=== PATIENT | male | born 1945 | race African-American/Black ===

== ENCOUNTER 2018-03-18 02:22 | Emergency (ER) | payer MEDICARE ==
[~2018-03-18] VITALS: Ht 175.3 cm; Wt 87.0 kg
[~2018-03-18 02:22] MED LIST: AMLODIPINE; DILTIAZEM
[2018-03-18] MEDS ORDERED: ASPIRIN 81MG TABLET PO ONE (03:00)
[2018-03-18 03:30] LABS: BASOPHILS % 0.7 % (0.0-2.0); EOSINOPHILS % 1.6 % (0.0-5.0); HEMATOCRIT. 37.4 % (42.0-52.0); HEMOGLOBIN. 12.6 g/dL (14.0-18.0); LYMPHOCYTES % 16.9 % (20.0-50.0); MEAN CORPUSCULAR VOLUME 86.2 fL (80.0-94.0); MEAN PLATELET VOLUME 7.5 fl (7.4-10.4); MONOCYTES % 12.4 % (2.0-8.0); NEUTROPHILS % 68.4 % (40.0-76.0); PLATELET 214 x1000/uL (130-400); RED BLOOD CELL COUNT 4.34 mill/uL (4.7-6.1); RED CELL DISTRIBUTION WIDTH 14.9 % (11.6-14.6)
[2018-03-18 03:33] LABS: CHLORIDE 105 mEq/L (98-107)
[2018-03-18 03:35] LABS: INR 1.1; PARTIAL THROMBOPLASTIN TIME 27.5 sec (23.4-31.0)
[2018-03-18 06:50] VITALS: BP 125/85
== END 2018-03-18 06:53 | disposition home or self-care (01) ==
LOC: ER 03:04 → CANBEDREQ 07:18
DX: T50.991A Poisoning by other drugs, medicaments and biological substances, accidental (unintentional), initial encounter (principal); R07.89 Other chest pain; I10 Essential (primary) hypertension; E78.00 Pure hypercholesterolemia, unspecified; I44.0 Atrioventricular block, first degree; Y92.098 Other place in other non-institutional residence as the place of occurrence of the external cause
CPT/HCPCS: 36415; 71045; 80053; 83880; 84484; 85025; 85610; 85730; 93005; 99285

== ENCOUNTER 2018-08-25 21:44 | Inpatient (IN) | payer MEDICARE, OTHER ==
[~2018-08-25] VITALS: Ht 175.3 cm; Wt 93.4 kg
[2018-08-26] MEDS ORDERED: BACITRACIN ZINC OINT UDPKT TOP ONE (00:15)
[2018-08-26] MEDS ORDERED: HYDROCODONE/ACETAMINOPHEN 5/325MG TABLET PO STA (00:15)
[2018-08-26 02:16] LABS: BASOPHILS % 0.6 % (0.0-2.0); EOSINOPHILS % 0.5 % (0.0-5.0); HEMATOCRIT. 37.9 % (42.0-52.0); HEMOGLOBIN. 13.1 g/dL (14.0-18.0); LYMPHOCYTES % 11.8 % (20.0-50.0); MEAN CORPUSCULAR VOLUME 86.7 fL (80.0-94.0); MEAN PLATELET VOLUME 7.2 fl (7.4-10.4); MONOCYTES % 11.1 % (2.0-8.0); PLATELET 212 x1000/uL (130-400); RED BLOOD CELL COUNT 4.37 mill/uL (4.7-6.1); RED CELL DISTRIBUTION WIDTH 14.5 % (11.6-14.6)
[2018-08-26 02:25] LABS: CHLORIDE 104 mEq/L (98-107)
[2018-08-26 02:42] LABS: CLARITY URINE CLEAR (CLEAR); COLOR URINE YELLOW (YELLOW); KETONES URINE NEGATIVE (NEGATIVE); LEUKOCYTE ESTERASE URINE NEGATIVE (NEGATIVE); NITRITE URINE NEGATIVE (NEGATIVE); OCCULT BLOOD URINE NEGATIVE (NEGATIVE); PH URINE 6.5 (4.5-8.0); PROTEIN URINE NEGATIVE (NEGATIVE); SPECIFIC GRAVITY URINE 1.005 (1.005-1.030); UROBILINOGEN URINE 0.2 E.U./dL (0.2-1.0)
[2018-08-26] MEDS ORDERED: HYDROCODONE/APAP 7.5/325MG 1 TAB TABLET PO ONE (04:30)
[2018-08-26] MEDS ORDERED: IBUPROFEN 600MG TABLET PO PRN (05:00)
[2018-08-26] MEDS ORDERED: MAGNESIUM/ALUMINUM HYDROXIDE/SIMETHICONE 30ML UDC PO PRN (07:30)
[2018-08-26] MEDS ORDERED: CLONIDINE 0.1MG TABLET PO PRN (07:30)
[2018-08-26] MEDS ORDERED: DIPHENHYDRAMINE 50MG/ML VIAL IV PRN (07:30)
[2018-08-26] MEDS ORDERED: NA PHOS,M-B/NA PHOS,DI-BA ENEMA 118ML PR PRN (07:30)
[2018-08-26] MEDS ORDERED: LORAZEPAM 2MG/ML CPJ IV PRN (07:30)
[2018-08-26] MEDS ORDERED: GUAIFENESIN 200MG/10ML SUGAR FREE UDC PO PRN (07:30)
[2018-08-26 08:00] VITALS: BP 148/79
[2018-08-26 10:00] VITALS: BP 124/84
[2018-08-26] MEDS ORDERED: DEXT 5%/0.45% NACL 1000ML 1,000 ML IV SCH (10:00)
[2018-08-26] MEDS: ENOXAPARIN 30MG/0.3ML SYR SUBCUT SCH ×2 (11:32→20:31)
[2018-08-26] MEDS: MORPHINE SULFATE 4 MG/ML CPJ (NOT FOR IM USE) IV PRN (11:33)
[2018-08-26 12:00] VITALS: BP 129/80
[2018-08-26] MEDS: HYDROCODONE/ACETAMINOPHEN 10/325MG TABLET PO PRN ×2 (15:31→20:43)
[2018-08-26] MEDS: SODIUM CHLORIDE 0.45% 1,000 ML IV SCH (15:32)
[2018-08-26] MEDS ORDERED: AMLODIPINE 5MG TABLET PO SCH (15:45)
[2018-08-26 16:00] VITALS: BP 131/78
[2018-08-26 20:00] VITALS: BP 152/89
[2018-08-27] VITALS: BP 144/78
[2018-08-27] MEDS: MORPHINE SULFATE 4 MG/ML CPJ (NOT FOR IM USE) IV PRN (02:51)
[2018-08-27 04:00] VITALS: BP 146/84
[2018-08-27] MEDS: SODIUM CHLORIDE 0.45% 1,000 ML IV SCH ×2 (05:06→23:33)
[2018-08-27] MEDS: IPRATROPIUM/ALBUTEROL 0.5-3(2.5)MG/3ML NEB INH PRN (05:15)
[2018-08-27 06:39] LABS: HEMATOCRIT. 41.7 % (42.0-52.0); HEMOGLOBIN. 13.7 g/dL (14.0-18.0); MEAN CORPUSCULAR HEMOGLOBIN 28.7 pg (28.0-32.0); MEAN CORPUSCULAR VOLUME 87.6 fL (80.0-94.0); MEAN PLATELET VOLUME 7.8 fl (7.4-10.4); PLATELET 215 x1000/uL (130-400); RED BLOOD CELL COUNT 4.76 mill/uL (4.7-6.1); RED CELL DISTRIBUTION WIDTH 14.6 % (11.6-14.6)
[2018-08-27 06:49] LABS: CHLORIDE 102 mEq/L (98-107)
[2018-08-27 08:00] VITALS: BP 135/85
[2018-08-27 08:24] LABS: PLATELET ESTIMATE NORMAL
[2018-08-27] MEDS ORDERED: INFLUENZA VIRUS VACCINE(AFLURIA) 0.5ML SYR IM ONE (09:00)
[2018-08-27] MEDS: ENOXAPARIN 30MG/0.3ML SYR SUBCUT SCH ×2 (09:37→20:56)
[2018-08-27] MEDS: AMLODIPINE 5MG TABLET PO SCH (09:38)
[2018-08-27] MEDS: HYDROCODONE/ACETAMINOPHEN 10/325MG TABLET PO PRN ×3 (09:41→20:55)
[2018-08-27 12:00] VITALS: BP 115/74
[2018-08-27 16:00] VITALS: BP 124/79
[2018-08-27 20:00] VITALS: BP 133/76
[2018-08-28] VITALS (64 sets, daily range): BP systolic 83–181; BP diastolic 57–125
[2018-08-28] MEDS: ACETAMINOPHEN 325MG TABLET PO PRN (00:36)
[2018-08-28] MEDS: IPRATROPIUM/ALBUTEROL 0.5-3(2.5)MG/3ML NEB INH PRN (01:41)
[2018-08-28] MEDS: MORPHINE SULFATE 4 MG/ML CPJ (NOT FOR IM USE) IV PRN (04:13)
[2018-08-28] MEDS: HYDROCODONE/ACETAMINOPHEN 10/325MG TABLET PO PRN (05:30)
[2018-08-28] MEDS ORDERED: PHENYLEPHRINE 40 MG in DEXT 5% WATER 246 ML IV PRN (08:30)
[2018-08-28] MEDS ORDERED: FENTANYL CITRATE/PF 50MCG/ML 2ML VIAL IV ONE (08:45)
[2018-08-28] MEDS: AMLODIPINE 5MG TABLET PO SCH (09:00)
[2018-08-28] MEDS: PROPOFOL 10MG/ML 100ML 100 ML IV PRN ×4 (09:26→22:58)
[2018-08-28 10:20] LABS: BG BASE EXCESS -0.4 mmol/L (-2.0-2.0); BG CARBOXYHEMOGLOBIN 0.9 % (0.5-1.5); BG DEOXYHEMOGLOBIN 0.3 % (0.0-5.0); BG HCO3 ACT 22.5 mmol/L (22.0-26.0); BG METHEMOGLOBIN 0.2 % (0.0-1.5); BG OXYGEN SATURATION 99.7 % (92.0-98.5); BG OXYHEMOGLOBIN 98.6 % (94.0-97.0); BG PCO2 32.2 mmHg (35.0-45.0); BG PH 7.463 (7.350-7.450); BG SAMPLE SITE RIGHT RADIAL; BG TIDAL VOLUME(mL) 550 mL; BG TOTAL HEMOGLOBIN 13.6 g/dL (12.0-18.0); BG VENT MODE VENT - A/C; BG VENT RATE 14 set
[2018-08-28] MEDS ORDERED: IOHEXOL-350 100 ML BOTTLE ONE (11:06)
[2018-08-28] MEDS: SODIUM CHLORIDE 0.45% 1,000 ML IV SCH (11:33)
[2018-08-28 13:13] LABS: HEMATOCRIT. 37.1 % (42.0-52.0); HEMOGLOBIN. 12.6 g/dL (14.0-18.0); MEAN CORPUSCULAR HEMOGLOBIN 29.6 pg (28.0-32.0); MEAN CORPUSCULAR VOLUME 87.2 fL (80.0-94.0); PLATELET 213 x1000/uL (130-400); RED BLOOD CELL COUNT 4.26 mill/uL (4.7-6.1); RED CELL DISTRIBUTION WIDTH 14.1 % (11.6-14.6)
[2018-08-28] MEDS ORDERED: SODIUM CHLORIDE 0.9% 10ML VIAL ONE (13:27)
[2018-08-28] MEDS ORDERED: ETOMIDATE 2MG/ML 10ML VIAL IV ONE (13:27)
[2018-08-28] MEDS ORDERED: VECURONIUM BROMIDE 10 MG/VIAL IV ONE (13:27)
[2018-08-28] MEDS ORDERED: ENOXAPARIN 40MG/0.4ML SYR SUBCUT SCH (13:30)
[2018-08-28 13:48] LABS: CHLORIDE 103 mEq/L (98-107)
[2018-08-28 13:54] LABS: CREATINE KINASE 105 IU/L (39-308); CREATINE KINASE MB FRACTION < 1.0 ng/mL (0.5-3.6); HDL CHOLESTEROL 47 mg/dL (40-59); LDL CHOLESTEROL 100 mg/dL (5-100); T4 FREE 1.22 ng/dL (0.76-1.46)
[2018-08-28 14:28] LABS: PLATELET ESTIMATE NORMAL
[2018-08-28] MEDS: PANTOPRAZOLE SODIUM 40 MG/VIAL IV SCH (15:56)
[2018-08-29] VITALS (90 sets, daily range): BP systolic 107–162; BP diastolic 62–106
[2018-08-29 02:01] LABS: CREATINE KINASE 83 IU/L (39-308); CREATINE KINASE MB FRACTION < 1.0 ng/mL (0.5-3.6)
[2018-08-29] MEDS: PROPOFOL 10MG/ML 100ML 100 ML IV PRN ×4 (03:50→22:20)
[2018-08-29] MEDS: SODIUM CHLORIDE 0.45% 1,000 ML IV SCH ×2 (03:51→20:31)
[2018-08-29 05:56] LABS: BASOPHILS % 0.2 % (0.0-2.0); EOSINOPHILS % 1.5 % (0.0-5.0); HEMATOCRIT. 37.5 % (42.0-52.0); HEMOGLOBIN. 12.6 g/dL (14.0-18.0); LYMPHOCYTES % 8.2 % (20.0-50.0); MEAN CORPUSCULAR HEMOGLOBIN 29.5 pg (28.0-32.0); MEAN CORPUSCULAR VOLUME 87.8 fL (80.0-94.0); MEAN PLATELET VOLUME 8.1 fl (7.4-10.4); MONOCYTES % 11.2 % (2.0-8.0); NEUTROPHILS % 78.9 % (40.0-76.0); PLATELET 217 x1000/uL (130-400); RED BLOOD CELL COUNT 4.26 mill/uL (4.7-6.1); RED CELL DISTRIBUTION WIDTH 14.4 % (11.6-14.6)
[2018-08-29 05:58] LABS: CHLORIDE 105 mEq/L (98-107)
[2018-08-29 06:07] LABS: CREATINE KINASE 71 IU/L (39-308); CREATINE KINASE MB FRACTION < 1.0 ng/mL (0.5-3.6)
[2018-08-29 08:28] LABS: BG BASE EXCESS 0.2 mmol/L (-2.0-2.0); BG CARBOXYHEMOGLOBIN 1.4 % (0.5-1.5); BG DEOXYHEMOGLOBIN 2.2 % (0.0-5.0); BG FRACTION INSPIRED OXYGEN 40; BG HCO3 ACT 24.4 mmol/L (22.0-26.0); BG METHEMOGLOBIN 0.3 % (0.0-1.5); BG OXYGEN SATURATION 97.8 % (92.0-98.5); BG OXYHEMOGLOBIN 96.1 % (94.0-97.0); BG PCO2 37.9 mmHg (35.0-45.0); BG PH 7.426 (7.350-7.450); BG PO2 98.8 mmHg (75.0-100.0); BG SAMPLE SITE RIGHT RADIAL; BG TIDAL VOLUME(mL) 500 mL; BG TOTAL HEMOGLOBIN 13.2 g/dL (12.0-18.0); BG VENT MODE VENT - A/C; BG VENT RATE 12 set
[2018-08-29] MEDS: AMLODIPINE 5MG TABLET PO SCH (09:00)
[2018-08-29] MEDS: PANTOPRAZOLE SODIUM 40 MG/VIAL IV SCH (09:53)
[2018-08-29] MEDS: ENOXAPARIN 80MG/0.8ML SYR SUBCUT SCH ×2 (09:54→21:58)
[2018-08-29] MEDS ORDERED: FINA1TAB18 PO (12:51)
[2018-08-29] MEDS ORDERED: AMLO5TAB88 PO (12:52)
[2018-08-29] MEDS ORDERED: HYDR-4001 MT (12:53)
[2018-08-29] MEDS ORDERED: TAMS-11 PO (12:54)
[2018-08-29] MEDS ORDERED: ATOR20TA PO (12:54)
[2018-08-29] MEDS ORDERED: ASPI-1158 PO (12:55)
[2018-08-29] MEDS ORDERED: S350 PO (12:56)
[2018-08-29] MEDS ORDERED: LISI-604 PO (12:56)
[2018-08-29] MEDS: MORPHINE SULFATE 4 MG/ML CPJ (NOT FOR IM USE) IV PRN (17:41)
[2018-08-29] MEDS: IPRATROPIUM/ALBUTEROL 0.5-3(2.5)MG/3ML NEB HHN SCH ×2 (18:05→19:40)
[2018-08-29] MEDS: ACETAMINOPHEN 325MG TABLET PO PRN (18:52)
[2018-08-30] VITALS (90 sets, daily range): BP systolic 100–146; BP diastolic 60–84
[2018-08-30] MEDS: IPRATROPIUM/ALBUTEROL 0.5-3(2.5)MG/3ML NEB HHN SCH ×4 (01:25→19:30)
[2018-08-30] MEDS: ACETAMINOPHEN 325MG TABLET PO PRN (01:54)
[2018-08-30] MEDS: PROPOFOL 10MG/ML 100ML 100 ML IV PRN ×5 (03:35→21:54)
[2018-08-30 08:31] LABS: BG BASE EXCESS 3.4 mmol/L (-2.0-2.0); BG CARBOXYHEMOGLOBIN 0.8 % (0.5-1.5); BG DEOXYHEMOGLOBIN 2.7 % (0.0-5.0); BG FRACTION INSPIRED OXYGEN 40; BG METHEMOGLOBIN 0.3 % (0.0-1.5); BG OXYGEN SATURATION 97.3 % (92.0-98.5); BG OXYHEMOGLOBIN 96.2 % (94.0-97.0); BG PCO2 42.5 mmHg (35.0-45.0); BG PH 7.437 (7.350-7.450); BG PO2 94.9 mmHg (75.0-100.0); BG SAMPLE SITE LEFT RADIAL; BG TIDAL VOLUME(mL) 500 mL; BG TOTAL HEMOGLOBIN 13.3 g/dL (12.0-18.0); BG VENT MODE VENT - A/C; BG VENT RATE 12 set
[2018-08-30] MEDS: PANTOPRAZOLE SODIUM 40 MG/VIAL IV SCH (09:11)
[2018-08-30] MEDS: ENOXAPARIN 80MG/0.8ML SYR SUBCUT SCH ×2 (09:11→21:53)
[2018-08-30] MEDS: AMLODIPINE 5MG TABLET PO SCH (09:19)
[2018-08-30] MEDS: SODIUM CHLORIDE 0.45% 1,000 ML IV SCH (13:22)
[2018-08-31] VITALS (84 sets, daily range): BP systolic 78–158; BP diastolic 54–91
[2018-08-31] MEDS: IPRATROPIUM/ALBUTEROL 0.5-3(2.5)MG/3ML NEB HHN SCH ×4 (02:20→20:28)
[2018-08-31] MEDS: PROPOFOL 10MG/ML 100ML 100 ML IV PRN ×5 (03:56→21:56)
[2018-08-31] MEDS: SODIUM CHLORIDE 0.45% 1,000 ML IV SCH (03:56)
[2018-08-31 06:25] LABS: HEMATOCRIT. 36.2 % (42.0-52.0); MEAN CORPUSCULAR HEMOGLOBIN 28.9 pg (28.0-32.0); MEAN CORPUSCULAR VOLUME 87.5 fL (80.0-94.0); MEAN PLATELET VOLUME 8.4 fl (7.4-10.4); PLATELET 247 x1000/uL (130-400); RED BLOOD CELL COUNT 4.14 mill/uL (4.7-6.1)
[2018-08-31 06:34] LABS: CHLORIDE 107 mEq/L (98-107)
[2018-08-31 08:10] LABS: NUCLEATED RED BLOOD CELLS 1 /100 WBC; PLATELET ESTIMATE NORMAL
[2018-08-31] MEDS: PANTOPRAZOLE SODIUM 40 MG/VIAL IV SCH (09:00)
[2018-08-31] MEDS: AMLODIPINE 5MG TABLET PO SCH (09:00)
[2018-08-31] MEDS: ENOXAPARIN 80MG/0.8ML SYR SUBCUT SCH (13:00)
[2018-08-31 14:17] LABS: BG BASE EXCESS 1.5 mmol/L (-2.0-2.0); BG CARBOXYHEMOGLOBIN 0.7 % (0.5-1.5); BG DEOXYHEMOGLOBIN 3.3 % (0.0-5.0); BG FRACTION INSPIRED OXYGEN 40; BG HCO3 ACT 25.5 mmol/L (22.0-26.0); BG METHEMOGLOBIN 0.2 % (0.0-1.5); BG OXYGEN SATURATION 96.7 % (92.0-98.5); BG OXYHEMOGLOBIN 95.8 % (94.0-97.0); BG PCO2 38.2 mmHg (35.0-45.0); BG PH 7.442 (7.350-7.450); BG PO2 89.1 mmHg (75.0-100.0); BG SAMPLE SITE LEFT RADIAL; BG TIDAL VOLUME(mL) 500 mL; BG TOTAL HEMOGLOBIN 13.3 g/dL (12.0-18.0); BG VENT MODE VENT - A/C; BG VENT RATE 12 set
[2018-08-31] MEDS: ACETAMINOPHEN 325MG TABLET PO PRN (21:55)
[2018-08-31] MEDS: ENOXAPARIN 100MG/ML SYR SUBCUT SCH (22:31)
[2018-09-01] VITALS (74 sets, daily range): BP systolic 91–137; BP diastolic 58–79
[2018-09-01] MEDS: IPRATROPIUM/ALBUTEROL 0.5-3(2.5)MG/3ML NEB HHN SCH ×4 (00:51→12:09)
[2018-09-01] MEDS: PROPOFOL 10MG/ML 100ML 100 ML IV PRN ×5 (02:23→21:19)
[2018-09-01] MEDS: ACETAMINOPHEN 325MG TABLET PO PRN (06:15)
[2018-09-01] MEDS: AMLODIPINE 5MG TABLET PO SCH (09:00)
[2018-09-01] MEDS: PANTOPRAZOLE SODIUM 40 MG/VIAL IV SCH (09:12)
[2018-09-01] MEDS: ENOXAPARIN 100MG/ML SYR SUBCUT SCH ×2 (09:12→21:19)
[2018-09-01 10:01] LABS: HEMATOCRIT. 35.8 % (42.0-52.0); HEMOGLOBIN. 11.8 g/dL (14.0-18.0); MEAN CORPUSCULAR HEMOGLOBIN 28.8 pg (28.0-32.0); MEAN CORPUSCULAR VOLUME 87.4 fL (80.0-94.0); MEAN PLATELET VOLUME 8.6 fl (7.4-10.4); PLATELET 259 x1000/uL (130-400); RED BLOOD CELL COUNT 4.09 mill/uL (4.7-6.1); RED CELL DISTRIBUTION WIDTH 14.1 % (11.6-14.6)
[2018-09-01 10:08] LABS: CHLORIDE 107 mEq/L (98-107)
[2018-09-01] MEDS: SODIUM CHLORIDE 0.45% 1,000 ML IV SCH (10:36)
[2018-09-01] MEDS: METRONIDAZOLE 500 MG PREMIX 100 ML IV SCH ×2 (10:51→17:40)
[2018-09-01 10:57] LABS: PLATELET ESTIMATE NORMAL
[2018-09-01] MEDS ORDERED: ALBUTEROL (0.083%) 2.5MG/3ML NEB HHN PRN (12:30)
[2018-09-01] MEDS: LEVOFLOXACIN 500MG PREMIX 100 ML IV SCH (12:44)
[2018-09-01] MEDS: ACETYLCYSTEINE 100MG/ML 10% VIAL 4ML INH SCH (13:10)
[2018-09-01] MEDS: ALBUTEROL (0.083%) 2.5MG/3ML NEB HHN SCH ×2 (13:11→19:54)
[2018-09-02] VITALS (50 sets, daily range): BP systolic 98–137; BP diastolic 60–82
[2018-09-02] MEDS: METRONIDAZOLE 500 MG PREMIX 100 ML IV SCH ×3 (01:48→17:49)
[2018-09-02] MEDS: ACETYLCYSTEINE 100MG/ML 10% VIAL 4ML INH SCH ×3 (01:57→13:23)
[2018-09-02] MEDS: ALBUTEROL (0.083%) 2.5MG/3ML NEB HHN SCH ×4 (01:57→20:06)
[2018-09-02] MEDS: PROPOFOL 10MG/ML 100ML 100 ML IV PRN ×5 (02:31→21:30)
[2018-09-02] MEDS: SODIUM CHLORIDE 0.45% 1,000 ML IV SCH ×2 (02:32→17:49)
[2018-09-02 05:15] LABS: HEMATOCRIT. 34.9 % (42.0-52.0); HEMOGLOBIN. 11.6 g/dL (14.0-18.0); MEAN CORPUSCULAR HEMOGLOBIN 29.1 pg (28.0-32.0); MEAN PLATELET VOLUME 8.2 fl (7.4-10.4); PLATELET 266 x1000/uL (130-400); RED BLOOD CELL COUNT 3.97 mill/uL (4.7-6.1); RED CELL DISTRIBUTION WIDTH 14.2 % (11.6-14.6)
[2018-09-02 05:23] LABS: CHLORIDE 108 mEq/L (98-107)
[2018-09-02] MEDS: PANTOPRAZOLE SODIUM 40 MG/VIAL IV SCH (08:52)
[2018-09-02] MEDS: AMLODIPINE 5MG TABLET PO SCH (08:53)
[2018-09-02] MEDS: ENOXAPARIN 100MG/ML SYR SUBCUT SCH ×2 (08:53→21:30)
[2018-09-02 09:54] LABS: PLATELET ESTIMATE NORMAL
[2018-09-02] MEDS: LEVOFLOXACIN 500MG PREMIX 100 ML IV SCH (11:50)
[2018-09-03] VITALS (47 sets, daily range): BP systolic 103–146; BP diastolic 62–100
[2018-09-03] MEDS: ACETYLCYSTEINE 100MG/ML 10% VIAL 4ML INH SCH ×2 (00:11→08:05)
[2018-09-03] MEDS: METRONIDAZOLE 500 MG PREMIX 100 ML IV SCH ×3 (01:03→17:33)
[2018-09-03] MEDS: ACETAMINOPHEN 325MG TABLET PO PRN ×3 (01:04→23:42)
[2018-09-03] MEDS: PROPOFOL 10MG/ML 100ML 100 ML IV PRN ×2 (01:51→06:31)
[2018-09-03] MEDS: ALBUTEROL (0.083%) 2.5MG/3ML NEB HHN SCH ×4 (02:05→19:56)
[2018-09-03 05:10] LABS: HEMOGLOBIN. 11.4 g/dL (14.0-18.0); MEAN CORPUSCULAR HEMOGLOBIN 29.1 pg (28.0-32.0); MEAN CORPUSCULAR VOLUME 87.1 fL (80.0-94.0); MEAN PLATELET VOLUME 8.2 fl (7.4-10.4); PLATELET 302 x1000/uL (130-400); RED CELL DISTRIBUTION WIDTH 14.3 % (11.6-14.6)
[2018-09-03 07:15] LABS: ATYPICAL LYMPHOCYTES 1
[2018-09-03 07:16] LABS: PLATELET ESTIMATE NORMAL
[2018-09-03 08:46] LABS: BG BASE EXCESS 2.2 mmol/L (-2.0-2.0); BG CARBOXYHEMOGLOBIN 0.1 % (0.5-1.5); BG DEOXYHEMOGLOBIN 1.5 % (0.0-5.0); BG FRACTION INSPIRED OXYGEN 40; BG HCO3 ACT 26.4 mmol/L (22.0-26.0); BG OXYGEN SATURATION 98.5 % (92.0-98.5); BG OXYHEMOGLOBIN 98.4 % (94.0-97.0); BG PCO2 39.9 mmHg (35.0-45.0); BG PH 7.439 (7.350-7.450); BG PO2 132.9 mmHg (75.0-100.0); BG SAMPLE SITE RIGHT RADIAL; BG TIDAL VOLUME(mL) 500 mL; BG TOTAL HEMOGLOBIN 11.9 g/dL (12.0-18.0); BG VENT MODE VENT - A/C; BG VENT RATE 12 set
[2018-09-03] MEDS: PANTOPRAZOLE SODIUM 40 MG/VIAL IV SCH (09:15)
[2018-09-03] MEDS: AMLODIPINE 5MG TABLET PO SCH (09:15)
[2018-09-03] MEDS: ENOXAPARIN 100MG/ML SYR SUBCUT SCH ×2 (09:16→20:33)
[2018-09-03] MEDS ORDERED: LORAZEPAM 2MG/ML CPJ IV SCH (09:30)
[2018-09-03] MEDS: QUETIAPINE FUMARATE 25MG TABLET PO SCH ×2 (10:02→20:33)
[2018-09-03] MEDS: LEVOFLOXACIN 500MG PREMIX 100 ML IV SCH (10:44)
[2018-09-03 10:59] LABS: BG BASE EXCESS 1.8 mmol/L (-2.0-2.0); BG CARBOXYHEMOGLOBIN 0.8 % (0.5-1.5); BG DEOXYHEMOGLOBIN 6.9 % (0.0-5.0); BG FRACTION INSPIRED OXYGEN 40; BG HCO3 ACT 26.4 mmol/L (22.0-26.0); BG OXYHEMOGLOBIN 92.3 % (94.0-97.0); BG PCO2 41.7 mmHg (35.0-45.0); BG PO2 64.7 mmHg (75.0-100.0); BG PRESSURE SUPPORT 8; BG SAMPLE SITE RIGHT RADIAL; BG TOTAL HEMOGLOBIN 12.1 g/dL (12.0-18.0); BG VENT MODE VENT - CPAP
[2018-09-03] MEDS ORDERED: FUROSEMIDE 40MG/4ML VIAL IVP NR (11:45)
[2018-09-03 12:05] LABS: CHLORIDE 109 mEq/L (98-107)
[2018-09-03] MEDS: FENTANYL CITRATE/PF 500 MCG in SODIUM CHLORIDE 0.9% 40 ML IV PRN ×2 (12:51→20:38)
[2018-09-04] VITALS (49 sets, daily range): BP systolic 82–168; BP diastolic 46–118
[2018-09-04] MEDS: ACETYLCYSTEINE 100MG/ML 10% VIAL 4ML INH SCH ×2 (00:45→12:58)
[2018-09-04] MEDS: ALBUTEROL (0.083%) 2.5MG/3ML NEB HHN SCH ×2 (01:51→08:11)
[2018-09-04] MEDS: METRONIDAZOLE 500 MG PREMIX 100 ML IV SCH ×3 (01:57→17:02)
[2018-09-04] MEDS: FENTANYL CITRATE/PF 500 MCG in SODIUM CHLORIDE 0.9% 40 ML IV PRN (04:48)
[2018-09-04] MEDS: ACETAMINOPHEN 325MG TABLET PO PRN ×2 (05:48→16:52)
[2018-09-04] MEDS: AMLODIPINE 5MG TABLET PO SCH (09:00)
[2018-09-04] MEDS: PANTOPRAZOLE SODIUM 40 MG/VIAL IV SCH (09:02)
[2018-09-04] MEDS: QUETIAPINE FUMARATE 25MG TABLET PO SCH ×2 (09:02→20:39)
[2018-09-04] MEDS: ENOXAPARIN 100MG/ML SYR SUBCUT SCH ×2 (09:02→20:39)
[2018-09-04 11:57] LABS: BG BASE EXCESS 5.1 mmol/L (-2.0-2.0); BG CARBOXYHEMOGLOBIN 0.5 % (0.5-1.5); BG FRACTION INSPIRED OXYGEN 40; BG HCO3 ACT 29.7 mmol/L (22.0-26.0); BG METHEMOGLOBIN 0.1 % (0.0-1.5); BG OXYHEMOGLOBIN 96.4 % (94.0-97.0); BG PCO2 43.9 mmHg (35.0-45.0); BG PH 7.448 (7.350-7.450); BG PO2 92.3 mmHg (75.0-100.0); BG PRESSURE SUPPORT 8; BG SAMPLE SITE RIGHT RADIAL; BG TOTAL HEMOGLOBIN 12.3 g/dL (12.0-18.0); BG VENT MODE VENT - CPAP
[2018-09-04] MEDS: IPRATROPIUM/ALBUTEROL 0.5-3(2.5)MG/3ML NEB HHN SCH ×3 (12:58→20:00)
[2018-09-04] MEDS: CEFEPIME 2,000 MG in DEXT 5% WATER 100 ML IV SCH (14:57)
[2018-09-04] MEDS: LORAZEPAM 2MG/ML CPJ IV PRN ×3 (17:55→23:43)
[2018-09-05] VITALS (48 sets, daily range): BP systolic 80–147; BP diastolic 40–112
[2018-09-05] MEDS: IPRATROPIUM/ALBUTEROL 0.5-3(2.5)MG/3ML NEB HHN SCH ×3 (00:45→08:57)
[2018-09-05] MEDS: CEFEPIME 2,000 MG in DEXT 5% WATER 100 ML IV SCH ×2 (01:50→14:51)
[2018-09-05] MEDS: METRONIDAZOLE 500 MG PREMIX 100 ML IV SCH ×3 (02:45→17:38)
[2018-09-05] MEDS: ACETYLCYSTEINE 100MG/ML 10% VIAL 4ML INH SCH ×2 (08:59→16:28)
[2018-09-05] MEDS: AMLODIPINE 5MG TABLET PO SCH (09:41)
[2018-09-05] MEDS: DOCUSATE SODIUM 100MG CAPSULE PO PRN (09:41)
[2018-09-05] MEDS: PANTOPRAZOLE SODIUM 40 MG/VIAL IV SCH (09:42)
[2018-09-05] MEDS: QUETIAPINE FUMARATE 25MG TABLET PO SCH ×2 (09:42→21:14)
[2018-09-05] MEDS: ENOXAPARIN 100MG/ML SYR SUBCUT SCH ×2 (09:45→21:15)
[2018-09-05] MEDS ORDERED: SODIUM CHLORIDE 0.9% 500 ML IV SCH (11:00)
[2018-09-05] MEDS: SODIUM CHLORIDE 0.9% 1,000 ML IV SCH (14:52)
[2018-09-05 15:23] LABS: HEMATOCRIT. 32.6 % (42.0-52.0); HEMOGLOBIN. 10.8 g/dL (14.0-18.0); MEAN CORPUSCULAR HEMOGLOBIN 28.8 pg (28.0-32.0); MEAN CORPUSCULAR VOLUME 87.1 fL (80.0-94.0); MEAN PLATELET VOLUME 7.8 fl (7.4-10.4); PLATELET 436 x1000/uL (130-400); RED BLOOD CELL COUNT 3.75 mill/uL (4.7-6.1); RED CELL DISTRIBUTION WIDTH 14.2 % (11.6-14.6)
[2018-09-05 15:28] LABS: CHLORIDE 114 mEq/L (98-107)
[2018-09-05 15:56] LABS: PLATELET ESTIMATE INCREASED
[2018-09-05] MEDS: IPRATROPIUM BROMIDE (0.02%) 0.5MG/2.5ML NEB HHN SCH ×2 (16:28→20:56)
[2018-09-06] VITALS (39 sets, daily range): BP systolic 71–148; BP diastolic 45–93
[2018-09-06] MEDS: SODIUM CHLORIDE 0.9% 1,000 ML IV SCH (00:45)
[2018-09-06] MEDS: ACETYLCYSTEINE 100MG/ML 10% VIAL 4ML INH SCH (02:25)
[2018-09-06] MEDS: IPRATROPIUM BROMIDE (0.02%) 0.5MG/2.5ML NEB HHN SCH ×4 (02:30→20:05)
[2018-09-06] MEDS ORDERED: SODIUM CHLORIDE 0.9% 250 ML IV ONE (02:45)
[2018-09-06] MEDS: CEFEPIME 2,000 MG in DEXT 5% WATER 100 ML IV SCH ×2 (02:51→14:00)
[2018-09-06] MEDS: ACETAMINOPHEN 325MG TABLET PO PRN (02:51)
[2018-09-06] MEDS: METRONIDAZOLE 500 MG PREMIX 100 ML IV SCH ×3 (02:51→17:44)
[2018-09-06] MEDS: PANTOPRAZOLE SODIUM 40 MG/VIAL IV SCH (08:27)
[2018-09-06] MEDS: LORAZEPAM 2MG/ML CPJ IV PRN (08:28)
[2018-09-06] MEDS: QUETIAPINE FUMARATE 25MG TABLET PO SCH ×2 (08:28→22:12)
[2018-09-06] MEDS: ENOXAPARIN 100MG/ML SYR SUBCUT SCH ×2 (08:28→22:13)
[2018-09-06] MEDS: AMLODIPINE 5MG TABLET PO SCH (08:29)
[2018-09-06] MEDS: DEXT 5%/0.45% NACL 1000ML 1,000 ML IV SCH (12:35)
[2018-09-06 12:48] LABS: CHLORIDE 124 mEq/L (98-107)
[2018-09-06 13:10] LABS: HEMATOCRIT. 27.5 % (42.0-52.0); HEMOGLOBIN. 9.1 g/dL (14.0-18.0); MEAN CORPUSCULAR HEMOGLOBIN 28.9 pg (28.0-32.0); MEAN CORPUSCULAR VOLUME 87.4 fL (80.0-94.0); MEAN PLATELET VOLUME 8.2 fl (7.4-10.4); PLATELET 495 x1000/uL (130-400); RED BLOOD CELL COUNT 3.14 mill/uL (4.7-6.1); RED CELL DISTRIBUTION WIDTH 14.4 % (11.6-14.6)
[2018-09-06 13:46] LABS: PLATELET ESTIMATE INCREASED
[2018-09-06] MEDS ORDERED: SODIUM CHLORIDE 0.9% 500 ML IV NR (20:30)
[2018-09-06] MEDS ORDERED: SODIUM CHLORIDE 0.9% 1,000 ML IV NR (23:15)
[2018-09-07] VITALS (12 sets, daily range): BP systolic 99–161; BP diastolic 53–82
[2018-09-07] MEDS: IPRATROPIUM BROMIDE (0.02%) 0.5MG/2.5ML NEB HHN SCH ×5 (02:15→22:45)
[2018-09-07] MEDS: DEXT 5%/0.45% NACL 1000ML 1,000 ML IV SCH ×2 (03:28→12:13)
[2018-09-07] MEDS: CEFEPIME 2,000 MG in DEXT 5% WATER 100 ML IV SCH ×2 (03:28→14:44)
[2018-09-07] MEDS: METRONIDAZOLE 500 MG PREMIX 100 ML IV SCH ×3 (03:30→18:13)
[2018-09-07] MEDS: AMLODIPINE 5MG TABLET PO SCH (09:00)
[2018-09-07] MEDS: PANTOPRAZOLE SODIUM 40 MG/VIAL IV SCH (09:27)
[2018-09-07] MEDS: ENOXAPARIN 100MG/ML SYR SUBCUT SCH ×2 (09:33→21:47)
[2018-09-07] MEDS ORDERED: ENOXAPARIN 100MG/ML SYR SUBCUT SCH (13:11)
[2018-09-07] MEDS: METOPROLOL TARTRATE 50MG TABLET PO SCH (18:41)
[2018-09-07] MEDS ORDERED: ADENOSINE 3 MG/ML 2ML VIAL IV NR (19:15)
[2018-09-07] MEDS ORDERED: DIGOXIN 500MCG/2ML AMP IV NR (20:45)
[2018-09-07] MEDS: GUAIFENESIN 600MG ER TABLET PO SCH (20:59)
[2018-09-07] MEDS: QUETIAPINE FUMARATE 25MG TABLET PO SCH (21:00)
[2018-09-07] MEDS ORDERED: SODIUM CHLORIDE 0.9% 500 ML IV NR (22:15)
[2018-09-08] VITALS (21 sets, daily range): BP systolic 92–135; BP diastolic 36–81
[2018-09-08] MEDS: IPRATROPIUM BROMIDE (0.02%) 0.5MG/2.5ML NEB HHN SCH ×4 (00:15→20:47)
[2018-09-08] MEDS: CEFEPIME 2,000 MG in DEXT 5% WATER 100 ML IV SCH ×2 (01:16→14:04)
[2018-09-08] MEDS: METRONIDAZOLE 500 MG PREMIX 100 ML IV SCH ×2 (01:16→10:04)
[2018-09-08] MEDS: DEXT 5%/0.45% NACL 1000ML 1,000 ML IV SCH (01:17)
[2018-09-08] MEDS: METOPROLOL TARTRATE 50MG TABLET PO SCH ×3 (06:11→21:10)
[2018-09-08 07:03] LABS: BASOPHILS % 0.2 % (0.0-2.0); EOSINOPHILS % 0.3 % (0.0-5.0); LYMPHOCYTES % 8.1 % (20.0-50.0); MEAN CORPUSCULAR HEMOGLOBIN 28.9 pg (28.0-32.0); MEAN CORPUSCULAR VOLUME 87.9 fL (80.0-94.0); MEAN PLATELET VOLUME 7.9 fl (7.4-10.4); MONOCYTES % 8.4 % (2.0-8.0); PLATELET 523 x1000/uL (130-400); RED BLOOD CELL COUNT 2.18 mill/uL (4.7-6.1)
[2018-09-08 07:56] LABS: HEMATOCRIT. 19.1 % (42.0-52.0); HEMOGLOBIN. 6.3 g/dL (14.0-18.0)
[2018-09-08] MEDS: GUAIFENESIN 600MG ER TABLET PO SCH ×2 (08:39→20:36)
[2018-09-08] MEDS: ENOXAPARIN 100MG/ML SYR SUBCUT SCH (09:00)
[2018-09-08 09:46] LABS: HEMATOCRIT 19.1 % (42.0-52.0); HEMOGLOBIN 6.2 g/dL (14.0-18.0)
[2018-09-08] MEDS: PANTOPRAZOLE SODIUM 40 MG/VIAL IV SCH (10:04)
[2018-09-08] MEDS ORDERED: DIGOXIN 500MCG/2ML AMP IV SCH (15:30)
[2018-09-08] MEDS ORDERED: SODIUM CHLORIDE 0.9% 500 ML IV ONE (15:30)
[2018-09-08] MEDS: ACETAMINOPHEN 325MG TABLET PO PRN ×2 (16:15→20:34)
[2018-09-08] MEDS: FINASTERIDE 5MG TABLET PO SCH (17:48)
[2018-09-08] MEDS: DEXTROSE 5% WATER 1,000 ML IV SCH (17:49)
[2018-09-08] MEDS: QUETIAPINE FUMARATE 25MG TABLET PO SCH (20:34)
[2018-09-08] MEDS ORDERED: DIGOXIN 500MCG/2ML AMP IV NR (22:00)
[2018-09-09] VITALS (14 sets, daily range): BP systolic 98–152; BP diastolic 58–98
[2018-09-09] MEDS: CEFEPIME 2,000 MG in DEXT 5% WATER 100 ML IV SCH ×2 (02:50→13:39)
[2018-09-09] MEDS: IPRATROPIUM BROMIDE (0.02%) 0.5MG/2.5ML NEB HHN SCH ×4 (02:51→20:16)
[2018-09-09] MEDS: METOPROLOL TARTRATE 50MG TABLET PO SCH ×2 (06:41→18:16)
[2018-09-09] MEDS: DEXTROSE 5% WATER 1,000 ML IV SCH ×2 (06:41→18:16)
[2018-09-09] MEDS: GUAIFENESIN 600MG ER TABLET PO SCH ×2 (09:13→21:01)
[2018-09-09] MEDS: PANTOPRAZOLE SODIUM 40 MG/VIAL IV SCH (09:13)
[2018-09-09] MEDS: DOCUSATE SODIUM 100MG CAPSULE PO PRN (09:13)
[2018-09-09] MEDS: FINASTERIDE 5MG TABLET PO SCH (09:13)
[2018-09-09] MEDS: ACETAMINOPHEN 325MG TABLET PO PRN ×2 (09:14→15:47)
[2018-09-09 09:24] LABS: HEMATOCRIT 26.6 % (42.0-52.0); HEMOGLOBIN 8.8 g/dL (14.0-18.0); MEAN CORPUSCULAR HEMOGLOBIN 28.9 pg (28.0-32.0); MEAN CORPUSCULAR VOLUME 86.8 fL (80.0-94.0); PLATELET 423 x1000/uL (130-400); RED BLOOD CELL COUNT 3.06 mill/uL (4.7-6.1); RED CELL DISTRIBUTION WIDTH 14.9 % (11.6-14.6)
[2018-09-09] MEDS: ONDANSETRON HCL 4MG/2ML INJ IV PRN (15:47)
[2018-09-09] MEDS: QUETIAPINE FUMARATE 25MG TABLET PO SCH (21:01)
[2018-09-10] VITALS (11 sets, daily range): BP systolic 92–127; BP diastolic 57–74
[2018-09-10] MEDS: IPRATROPIUM BROMIDE (0.02%) 0.5MG/2.5ML NEB HHN SCH ×5 (00:27→20:22)
[2018-09-10] MEDS: DEXTROSE 5% WATER 1,000 ML IV SCH ×3 (05:02→17:40)
[2018-09-10] MEDS: METOPROLOL TARTRATE 50MG TABLET PO SCH ×2 (06:28→20:27)
[2018-09-10 06:32] LABS: HEMATOCRIT. 24.6 % (42.0-52.0); HEMOGLOBIN. 8.2 g/dL (14.0-18.0); MEAN CORPUSCULAR HEMOGLOBIN 29.1 pg (28.0-32.0); MEAN CORPUSCULAR VOLUME 87.6 fL (80.0-94.0); PLATELET 264 x1000/uL (130-400); RED BLOOD CELL COUNT 2.81 mill/uL (4.7-6.1); RED CELL DISTRIBUTION WIDTH 15.1 % (11.6-14.6)
[2018-09-10 07:19] LABS: NUCLEATED RED BLOOD CELLS 1 /100 WBC; PLATELET ESTIMATE NORMAL
[2018-09-10] MEDS: PANTOPRAZOLE SODIUM 40 MG/VIAL IV SCH (09:04)
[2018-09-10] MEDS: FINASTERIDE 5MG TABLET PO SCH (09:04)
[2018-09-10] MEDS: DOCUSATE SODIUM 100MG CAPSULE PO PRN (09:05)
[2018-09-10] MEDS: GUAIFENESIN 600MG ER TABLET PO SCH ×2 (09:05→20:26)
[2018-09-10 09:26] LABS: CREATINE KINASE 967 IU/L (39-308)
[2018-09-10] MEDS ORDERED: TAMSULOSIN HCL 0.4MG SR CAPSULE PO NR (11:15)
[2018-09-10] MEDS ORDERED: FINASTERIDE 5MG TABLET PO SCH (11:15)
[2018-09-10] MEDS ORDERED: OSELTAMIVIR 75MG CAPSULE PO SCH (11:15)
[2018-09-10] MEDS: OSELTAMIVIR 30MG CAPSULE PO SCH (12:00)
[2018-09-10] MEDS: AZITHROMYCIN 500 MG in DEXT 5% WATER 250 ML IV SCH (13:00)
[2018-09-10] MEDS: ACETYLCYSTEINE 100MG/ML 10% VIAL 4ML INH SCH (15:54)
[2018-09-10] MEDS ORDERED: CEFEPIME 2,000 MG in DEXT 5% WATER 100 ML IV SCH (16:00)
[2018-09-10] MEDS ORDERED: HYDROCODONE/ACETAMINOPHEN 5/325MG TABLET PO PRN (20:15)
[2018-09-10] MEDS ORDERED: HYDROCODONE/ACETAMINOPHEN 10/325MG TABLET PO PRN (20:15)
[2018-09-10] MEDS: QUETIAPINE FUMARATE 25MG TABLET PO SCH (20:26)
[2018-09-11] VITALS (73 sets, daily range): BP systolic 27–157; BP diastolic 19–129
[2018-09-11] MEDS: DEXTROSE 5% WATER 1,000 ML IV SCH ×3 (00:44→19:43)
[2018-09-11] MEDS: IPRATROPIUM BROMIDE (0.02%) 0.5MG/2.5ML NEB HHN SCH ×7 (00:46→23:37)
[2018-09-11] MEDS: ACETYLCYSTEINE 100MG/ML 10% VIAL 4ML INH SCH ×4 (00:46→23:39)
[2018-09-11 04:09] LABS: BG CARBOXYHEMOGLOBIN 0.5 % (0.5-1.5); BG DEOXYHEMOGLOBIN 13.1 % (0.0-5.0); BG FRACTION INSPIRED OXYGEN 28; BG HCO3 ACT 16.8 mmol/L (22.0-26.0); BG METHEMOGLOBIN 0.6 % (0.0-1.5); BG OXYGEN SATURATION 86.8 % (92.0-98.5); BG OXYHEMOGLOBIN 85.8 % (94.0-97.0); BG PCO2 27.8 mmHg (35.0-45.0); BG PH 7.399 (7.350-7.450); BG PO2 51.2 mmHg (75.0-100.0); BG SAMPLE SITE RIGHT RADIAL; BG TOTAL HEMOGLOBIN 8.8 g/dL (12.0-18.0); BG VENT MODE NASAL CANNULA
[2018-09-11] MEDS ORDERED: DIGOXIN 500MCG/2ML AMP IV NR (05:30)
[2018-09-11 05:39] LABS: HEMATOCRIT. 25.8 % (42.0-52.0); HEMOGLOBIN. 8.5 g/dL (14.0-18.0); MEAN CORPUSCULAR HEMOGLOBIN 28.9 pg (28.0-32.0); MEAN CORPUSCULAR VOLUME 87.8 fL (80.0-94.0); MEAN PLATELET VOLUME 8.2 fl (7.4-10.4); PLATELET 208 x1000/uL (130-400); RED BLOOD CELL COUNT 2.94 mill/uL (4.7-6.1); RED CELL DISTRIBUTION WIDTH 14.8 % (11.6-14.6)
[2018-09-11] MEDS ORDERED: LORAZEPAM 2MG/ML CPJ IV PRN (05:45)
[2018-09-11 06:37] LABS: BG BASE EXCESS -8.6 mmol/L (-2.0-2.0); BG CARBOXYHEMOGLOBIN 0.3 % (0.5-1.5); BG FRACTION INSPIRED OXYGEN 80; BG HCO3 ACT 14.5 mmol/L (22.0-26.0); BG METHEMOGLOBIN 0.2 % (0.0-1.5); BG OXYHEMOGLOBIN 96.5 % (94.0-97.0); BG PCO2 23.2 mmHg (35.0-45.0); BG PH 7.414 (7.350-7.450); BG PO2 98.2 mmHg (75.0-100.0); BG SAMPLE SITE RIGHT RADIAL; BG TOTAL HEMOGLOBIN 9.8 g/dL (12.0-18.0); BG VENT MODE MASK - BIPAP; BG VENT RATE 20 set
[2018-09-11] MEDS: PHENYLEPHRINE 40 MG in DEXT 5% WATER 246 ML IV PRN ×4 (08:32→21:35)
[2018-09-11] MEDS: PROPOFOL 10MG/ML 100ML 100 ML IV PRN ×2 (08:33→18:00)
[2018-09-11 08:55] LABS: BG BASE EXCESS -9.8 mmol/L (-2.0-2.0); BG CARBOXYHEMOGLOBIN 0.5 % (0.5-1.5); BG DEOXYHEMOGLOBIN 1.1 % (0.0-5.0); BG FRACTION INSPIRED OXYGEN 100; BG HCO3 ACT 14.4 mmol/L (22.0-26.0); BG METHEMOGLOBIN 0.3 % (0.0-1.5); BG OXYGEN SATURATION 98.9 % (92.0-98.5); BG OXYHEMOGLOBIN 98.1 % (94.0-97.0); BG PCO2 26.2 mmHg (35.0-45.0); BG PH 7.359 (7.350-7.450); BG PO2 170.5 mmHg (75.0-100.0); BG SAMPLE SITE RIGHT RADIAL; BG TIDAL VOLUME(mL) 500 mL; BG TOTAL HEMOGLOBIN 8.5 g/dL (12.0-18.0); BG VENT MODE VENT - A/C; BG VENT RATE 14 set
[2018-09-11] MEDS: TAMSULOSIN HCL 0.4MG SR CAPSULE PO SCH (09:00)
[2018-09-11] MEDS: OSELTAMIVIR 30MG CAPSULE PO SCH (09:00)
[2018-09-11] MEDS: FINASTERIDE 5MG TABLET PO SCH (09:00)
[2018-09-11] MEDS: GUAIFENESIN 600MG ER TABLET PO SCH ×2 (09:00→21:00)
[2018-09-11] MEDS: METOPROLOL TARTRATE 50MG TABLET PO SCH ×2 (09:15→19:00)
[2018-09-11] MEDS: PANTOPRAZOLE SODIUM 40 MG/VIAL IV SCH ×2 (09:24→09:27)
[2018-09-11] MEDS: PIPERACILLIN/TAZ 2.25G PREMIX 50 ML IV SCH ×4 (09:24→21:42)
[2018-09-11] MEDS: AZITHROMYCIN 500 MG in DEXT 5% WATER 250 ML IV SCH (10:25)
[2018-09-11 11:15] LABS: INR 1.7; PARTIAL THROMBOPLASTIN TIME 37.7 sec (23.4-31.0); PROTHROMBIN TIME 17.4 sec (9.1-11.1)
[2018-09-11] MEDS: ENOXAPARIN 100MG/ML SYR SUBCUT SCH (11:46)
[2018-09-11] MEDS: NOREPINEPHRINE 32 MG in DEXT 5% WATER 468 ML IV PRN (12:45)
[2018-09-11] MEDS ORDERED: VASOPRESSIN 10 UNIT in SODIUM CHLORIDE 0.9% 99.5 ML IV PRN (13:15)
[2018-09-11 14:35] LABS: NUCLEATED RED BLOOD CELLS 2 /100 WBC; PLATELET ESTIMATE NORMAL
[2018-09-11 14:52] LABS: BG BASE EXCESS -8.5 mmol/L (-2.0-2.0); BG CARBOXYHEMOGLOBIN 0.3 % (0.5-1.5); BG DEOXYHEMOGLOBIN 0.7 % (0.0-5.0); BG FRACTION INSPIRED OXYGEN 100; BG HCO3 ACT 15.2 mmol/L (22.0-26.0); BG METHEMOGLOBIN 0.6 % (0.0-1.5); BG OXYGEN SATURATION 99.3 % (92.0-98.5); BG OXYHEMOGLOBIN 98.4 % (94.0-97.0); BG PCO2 25.2 mmHg (35.0-45.0); BG PH 7.398 (7.350-7.450); BG PO2 283.2 mmHg (75.0-100.0); BG SAMPLE SITE A-LINE; BG TIDAL VOLUME(mL) 500 mL; BG TOTAL HEMOGLOBIN 8.4 g/dL (12.0-18.0); BG VENT MODE VENT - A/C; BG VENT RATE 14 set
[2018-09-11 15:29] LABS: HEMATOCRIT. 23.6 % (42.0-52.0); HEMOGLOBIN. 7.7 g/dL (14.0-18.0); MEAN CORPUSCULAR HEMOGLOBIN 28.5 pg (28.0-32.0); MEAN CORPUSCULAR VOLUME 87.7 fL (80.0-94.0); MEAN PLATELET VOLUME 8.7 fl (7.4-10.4); PLATELET 211 x1000/uL (130-400); RED CELL DISTRIBUTION WIDTH 14.9 % (11.6-14.6)
[2018-09-11] MEDS ORDERED: ETOMIDATE 2MG/ML 10ML VIAL IV ONE (15:45)
[2018-09-11] MEDS ORDERED: SUCCINYLCHOLINE CHLORIDE 200MG/10ML IV ONE (15:45)
[2018-09-11 16:45] LABS: PLATELET ESTIMATE NORMAL
[2018-09-11] MEDS: QUETIAPINE FUMARATE 25MG TABLET PO SCH (21:41)
[2018-09-12] VITALS (101 sets, daily range): BP systolic 81–174; BP diastolic 5–73
[2018-09-12] MEDS: PIPERACILLIN/TAZ 2.25G PREMIX 50 ML IV SCH ×4 (03:33→21:20)
[2018-09-12] MEDS: DEXTROSE 5% WATER 1,000 ML IV SCH (03:40)
[2018-09-12] MEDS ORDERED: VANCOMYCIN 1500MG in DEXTROSE 5% WATER 250ML IV NR (04:00)
[2018-09-12 04:15] LABS: ANTI-NUCLEAR ANTIBODIES DIRECT Positive (Negative); COMPLEMENT C3 66 mg/dL (82-167)
[2018-09-12] MEDS: IPRATROPIUM BROMIDE (0.02%) 0.5MG/2.5ML NEB HHN SCH ×5 (04:46→19:52)
[2018-09-12 05:52] LABS: HEMATOCRIT. 23.9 % (42.0-52.0); HEMOGLOBIN. 7.9 g/dL (14.0-18.0); MEAN CORPUSCULAR HEMOGLOBIN 28.9 pg (28.0-32.0); MEAN CORPUSCULAR VOLUME 87.7 fL (80.0-94.0); MEAN PLATELET VOLUME 9.2 fl (7.4-10.4); PLATELET 200 x1000/uL (130-400); RED BLOOD CELL COUNT 2.72 mill/uL (4.7-6.1); RED CELL DISTRIBUTION WIDTH 15.1 % (11.6-14.6)
[2018-09-12 06:33] LABS: NUCLEATED RED BLOOD CELLS 2 /100 WBC; PLATELET ESTIMATE NORMAL
[2018-09-12] MEDS: METOPROLOL TARTRATE 50MG TABLET PO SCH ×2 (07:00→19:00)
[2018-09-12] MEDS: PROPOFOL 10MG/ML 100ML 100 ML IV PRN ×2 (07:04→19:24)
[2018-09-12 07:41] LABS: CLARITY URINE TURBID (CLEAR); COLOR URINE YELLOW (YELLOW); KETONES URINE NEGATIVE (NEGATIVE); NITRITE URINE NEGATIVE (NEGATIVE); OCCULT BLOOD URINE 3+ (NEGATIVE); PH URINE 5.5 (4.5-8.0); PROTEIN URINE 1+ (NEGATIVE); SPECIFIC GRAVITY URINE 1.008 (1.005-1.030)
[2018-09-12 07:42] LABS: LEUKOCYTE ESTERASE URINE TRACE (NEGATIVE); UROBILINOGEN URINE 0.2 E.U./dL (0.2-1.0)
[2018-09-12] MEDS: SODIUM CHLORIDE 0.45% 1,000 ML IV SCH ×3 (08:15→21:04)
[2018-09-12 08:34] LABS: BG BASE EXCESS -6.8 mmol/L (-2.0-2.0); BG CARBOXYHEMOGLOBIN 0.3 % (0.5-1.5); BG DEOXYHEMOGLOBIN 0.6 % (0.0-5.0); BG FRACTION INSPIRED OXYGEN 100; BG HCO3 ACT 16.6 mmol/L (22.0-26.0); BG OXYGEN SATURATION 99.4 % (92.0-98.5); BG OXYHEMOGLOBIN 99.1 % (94.0-97.0); BG PH 7.439 (7.350-7.450); BG PO2 312.6 mmHg (75.0-100.0); BG SAMPLE SITE A-LINE; BG TIDAL VOLUME(mL) 500 mL; BG VENT MODE VENT - A/C; BG VENT RATE 14 set
[2018-09-12] MEDS: ACETYLCYSTEINE 100MG/ML 10% VIAL 4ML INH SCH ×2 (08:50→16:38)
[2018-09-12] MEDS: FINASTERIDE 5MG TABLET PO SCH (09:00)
[2018-09-12] MEDS: CITRIC ACID/SODIUM CITRATE SOLN 30ML UDC PO SCH ×3 (09:23→17:00)
[2018-09-12] MEDS: AZITHROMYCIN 500 MG in DEXT 5% WATER 250 ML IV SCH (09:23)
[2018-09-12] MEDS: ENOXAPARIN 100MG/ML SYR SUBCUT SCH (09:25)
[2018-09-12] MEDS: OSELTAMIVIR 30MG CAPSULE PO SCH (09:25)
[2018-09-12] MEDS: TAMSULOSIN HCL 0.4MG SR CAPSULE PO SCH (09:26)
[2018-09-12] MEDS: GUAIFENESIN 600MG ER TABLET PO SCH ×2 (09:28→21:00)
[2018-09-12] MEDS: ONDANSETRON HCL 4MG/2ML INJ IV PRN (10:08)
[2018-09-12] MEDS: NOREPINEPHRINE 32 MG in DEXT 5% WATER 468 ML IV PRN (14:04)
[2018-09-12] MEDS: PHENYLEPHRINE 80 MG in DEXT 5% WATER 492 ML IV PRN ×2 (15:00→20:49)
[2018-09-12] MEDS: ACETAMINOPHEN 325MG TABLET PO PRN (18:12)
[2018-09-12] MEDS: QUETIAPINE FUMARATE 25MG TABLET PO SCH (21:21)
[2018-09-13] VITALS (105 sets, daily range): BP systolic 75–138; BP diastolic 18–62
[2018-09-13] MEDS: ACETYLCYSTEINE 100MG/ML 10% VIAL 4ML INH SCH ×4 (00:02→23:48)
[2018-09-13] MEDS: IPRATROPIUM BROMIDE (0.02%) 0.5MG/2.5ML NEB HHN SCH ×7 (00:02→23:48)
[2018-09-13] MEDS: SODIUM CHLORIDE 0.45% 1,000 ML IV SCH ×3 (00:15→16:00)
[2018-09-13] MEDS: PIPERACILLIN/TAZ 2.25G PREMIX 50 ML IV SCH ×4 (02:37→21:15)
[2018-09-13] MEDS: NOREPINEPHRINE 32 MG in DEXT 5% WATER 468 ML IV PRN (05:02)
[2018-09-13] MEDS: PROPOFOL 10MG/ML 100ML 100 ML IV PRN ×3 (05:08→22:52)
[2018-09-13 06:15] LABS: MEAN CORPUSCULAR HEMOGLOBIN 28.6 pg (28.0-32.0); MEAN CORPUSCULAR VOLUME 86.3 fL (80.0-94.0); MEAN PLATELET VOLUME 8.7 fl (7.4-10.4); PLATELET 209 x1000/uL (130-400); RED BLOOD CELL COUNT 2.34 mill/uL (4.7-6.1); RED CELL DISTRIBUTION WIDTH 14.8 % (11.6-14.6)
[2018-09-13 06:30] LABS: HEMOGLOBIN. 6.7 g/dL (14.0-18.0)
[2018-09-13 06:31] LABS: HEMATOCRIT. 20.2 % (42.0-52.0)
[2018-09-13] MEDS: METOPROLOL TARTRATE 50MG TABLET PO SCH (07:00)
[2018-09-13 07:10] LABS: PHOSPHORUS 3.7 mg/dL (2.5-4.9)
[2018-09-13 07:31] LABS: BG BASE EXCESS -4.4 mmol/L (-2.0-2.0); BG CARBOXYHEMOGLOBIN 0.3 % (0.5-1.5); BG DEOXYHEMOGLOBIN 2.7 % (0.0-5.0); BG HCO3 ACT 19.1 mmol/L (22.0-26.0); BG METHEMOGLOBIN 0.6 % (0.0-1.5); BG OXYGEN SATURATION 97.3 % (92.0-98.5); BG OXYHEMOGLOBIN 96.4 % (94.0-97.0); BG PCO2 27.6 mmHg (35.0-45.0); BG PH 7.458 (7.350-7.450); BG PO2 97.8 mmHg (75.0-100.0); BG SAMPLE SITE A-LINE; BG TIDAL VOLUME(mL) 500 mL; BG TOTAL HEMOGLOBIN 5.9 g/dL (12.0-18.0); BG VENT MODE VENT - A/C; BG VENT RATE 14 set
[2018-09-13] MEDS: IPRATROPIUM/ALBUTEROL 0.5-3(2.5)MG/3ML NEB HHN PRN (07:52)
[2018-09-13] MEDS: TAMSULOSIN HCL 0.4MG SR CAPSULE PO SCH (08:26)
[2018-09-13] MEDS: CITRIC ACID/SODIUM CITRATE SOLN 30ML UDC PO SCH ×3 (08:26→16:00)
[2018-09-13] MEDS: GUAIFENESIN 600MG ER TABLET PO SCH ×2 (08:26→21:15)
[2018-09-13] MEDS: AZITHROMYCIN 500 MG in DEXT 5% WATER 250 ML IV SCH (08:26)
[2018-09-13] MEDS: OSELTAMIVIR 30MG CAPSULE PO SCH (08:26)
[2018-09-13] MEDS: PANTOPRAZOLE SODIUM 40 MG/VIAL IV SCH ×2 (08:26→21:15)
[2018-09-13] MEDS: FINASTERIDE 5MG TABLET PO SCH (08:29)
[2018-09-13] MEDS: ACETAMINOPHEN 325MG TABLET PO PRN (09:23)
[2018-09-13 11:13] LABS: NUCLEATED RED BLOOD CELLS 2 /100 WBC
[2018-09-13 11:14] LABS: PLATELET ESTIMATE NORMAL
[2018-09-13] MEDS ORDERED: VANCOMYCIN 1500MG in DEXTROSE 5% WATER 250ML IV NR (15:00)
[2018-09-13 18:43] LABS: HEMATOCRIT 24.8 % (42.0-52.0); HEMOGLOBIN 8.4 g/dL (14.0-18.0)
[2018-09-13] MEDS: QUETIAPINE FUMARATE 25MG TABLET PO SCH (21:15)
[2018-09-13] MEDS: PHENYLEPHRINE 80 MG in DEXT 5% WATER 492 ML IV PRN (22:50)
[2018-09-14] VITALS (92 sets, daily range): BP systolic 77–138; BP diastolic 17–62
[2018-09-14] MEDS: SODIUM CHLORIDE 0.45% 1,000 ML IV SCH ×3 (03:00→22:15)
[2018-09-14] MEDS: IPRATROPIUM BROMIDE (0.02%) 0.5MG/2.5ML NEB HHN SCH ×5 (04:09→20:31)
[2018-09-14 06:20] LABS: HEMATOCRIT. 28.4 % (42.0-52.0); HEMOGLOBIN. 9.7 g/dL (14.0-18.0); MEAN CORPUSCULAR HEMOGLOBIN 29.5 pg (28.0-32.0); MEAN CORPUSCULAR VOLUME 86.4 fL (80.0-94.0); MEAN PLATELET VOLUME 9.1 fl (7.4-10.4); PLATELET 243 x1000/uL (130-400); RED BLOOD CELL COUNT 3.29 mill/uL (4.7-6.1); RED CELL DISTRIBUTION WIDTH 15.1 % (11.6-14.6)
[2018-09-14] MEDS: PIPERACILLIN/TAZ 2.25G PREMIX 50 ML IV SCH ×4 (06:56→20:09)
[2018-09-14 07:08] LABS: NUCLEATED RED BLOOD CELLS 1 /100 WBC
[2018-09-14 07:09] LABS: PLATELET ESTIMATE NORMAL
[2018-09-14 07:11] LABS: BG CARBOXYHEMOGLOBIN 0.3 % (0.5-1.5); BG DEOXYHEMOGLOBIN 4.1 % (0.0-5.0); BG FRACTION INSPIRED OXYGEN 40; BG HCO3 ACT 20.2 mmol/L (22.0-26.0); BG METHEMOGLOBIN 0.3 % (0.0-1.5); BG OXYGEN SATURATION 95.9 % (92.0-98.5); BG OXYHEMOGLOBIN 95.3 % (94.0-97.0); BG PCO2 29.4 mmHg (35.0-45.0); BG PH 7.455 (7.350-7.450); BG PO2 85.9 mmHg (75.0-100.0); BG SAMPLE SITE A-LINE; BG TOTAL HEMOGLOBIN 8.8 g/dL (12.0-18.0); BG VENT MODE VENT - A/C; BG VENT RATE 12 set
[2018-09-14] MEDS: PROPOFOL 10MG/ML 100ML 100 ML IV PRN ×2 (07:39→16:10)
[2018-09-14] MEDS: ACETYLCYSTEINE 100MG/ML 10% VIAL 4ML INH SCH ×2 (07:49→15:38)
[2018-09-14] MEDS: PANTOPRAZOLE SODIUM 40 MG/VIAL IV SCH ×2 (09:17→20:08)
[2018-09-14] MEDS: CITRIC ACID/SODIUM CITRATE SOLN 30ML UDC PO SCH ×3 (09:17→17:21)
[2018-09-14] MEDS: AZITHROMYCIN 500 MG in DEXT 5% WATER 250 ML IV SCH (09:17)
[2018-09-14] MEDS: TAMSULOSIN HCL 0.4MG SR CAPSULE PO SCH (09:17)
[2018-09-14] MEDS: OSELTAMIVIR 30MG CAPSULE PO SCH (09:17)
[2018-09-14] MEDS: GUAIFENESIN 600MG ER TABLET PO SCH (09:17)
[2018-09-14] MEDS: FINASTERIDE 5MG TABLET PO SCH (09:17)
[2018-09-14] MEDS: NOREPINEPHRINE 32 MG in DEXT 5% WATER 468 ML IV PRN (09:19)
[2018-09-14] MEDS: METOCLOPRAMIDE HCL 10MG/2ML VIAL IV SCH ×2 (11:03→17:21)
[2018-09-14] MEDS: ACETAMINOPHEN 650MG SUPP PR PRN (11:26)
[2018-09-14] MEDS: MICAFUNGIN 100 MG in SODIUM CHLORIDE 0.9% 100 ML IV SCH (14:55)
[2018-09-14] MEDS: QUETIAPINE FUMARATE 25MG TABLET PO SCH (20:08)
[2018-09-14] MEDS: PHENYLEPHRINE 80 MG in DEXT 5% WATER 492 ML IV PRN (21:00)
[2018-09-15] VITALS (83 sets, daily range): BP systolic 52–126; BP diastolic 33–69
[2018-09-15] MEDS: ACETYLCYSTEINE 100MG/ML 10% VIAL 4ML INH SCH ×3 (00:31→15:43)
[2018-09-15] MEDS: IPRATROPIUM BROMIDE (0.02%) 0.5MG/2.5ML NEB HHN SCH ×7 (00:31→23:57)
[2018-09-15] MEDS: PROPOFOL 10MG/ML 100ML 100 ML IV PRN ×3 (00:52→16:48)
[2018-09-15] MEDS: METOCLOPRAMIDE HCL 10MG/2ML VIAL IV SCH ×4 (01:09→18:55)
[2018-09-15] MEDS: PIPERACILLIN/TAZ 2.25G PREMIX 50 ML IV SCH ×4 (03:45→20:57)
[2018-09-15 05:23] LABS: HEMATOCRIT. 23.8 % (42.0-52.0); HEMOGLOBIN. 8.2 g/dL (14.0-18.0); MEAN CORPUSCULAR HEMOGLOBIN 29.4 pg (28.0-32.0); MEAN CORPUSCULAR VOLUME 85.2 fL (80.0-94.0); PLATELET 247 x1000/uL (130-400); RED BLOOD CELL COUNT 2.79 mill/uL (4.7-6.1); RED CELL DISTRIBUTION WIDTH 15.2 % (11.6-14.6)
[2018-09-15 05:50] LABS: PHOSPHORUS 3.9 mg/dL (2.5-4.9)
[2018-09-15] MEDS ORDERED: KCL 20MEQ/100ML PREMIX 100 ML IV ONE (08:00)
[2018-09-15] MEDS ORDERED: POTASSIUM CHLORIDE INJ 40 MEQ in DEXT 5% WATER 250 ML IV ONE (08:00)
[2018-09-15 08:21] LABS: BG CARBOXYHEMOGLOBIN 0.3 % (0.5-1.5); BG DEOXYHEMOGLOBIN 2.5 % (0.0-5.0); BG FRACTION INSPIRED OXYGEN 40; BG HCO3 ACT 20.5 mmol/L (22.0-26.0); BG METHEMOGLOBIN 0.2 % (0.0-1.5); BG OXYGEN SATURATION 97.5 % (92.0-98.5); BG PCO2 26.9 mmHg (35.0-45.0); BG PO2 98.9 mmHg (75.0-100.0); BG SAMPLE SITE RIGHT RADIAL; BG TIDAL VOLUME(mL) 500 mL; BG TOTAL HEMOGLOBIN 8.7 g/dL (12.0-18.0); BG VENT MODE VENT - A/C; BG VENT RATE 12 set
[2018-09-15] MEDS ORDERED: POTASSIUM CHLORIDE INJ 60 MEQ in DEXT 5% WATER 500 ML IV NR (09:00)
[2018-09-15] MEDS: PANTOPRAZOLE SODIUM 40 MG/VIAL IV SCH ×2 (09:26→20:57)
[2018-09-15] MEDS: CITRIC ACID/SODIUM CITRATE SOLN 30ML UDC PO SCH ×2 (09:26→18:55)
[2018-09-15] MEDS: FINASTERIDE 5MG TABLET PO SCH (09:26)
[2018-09-15] MEDS: TAMSULOSIN HCL 0.4MG SR CAPSULE PO SCH (09:26)
[2018-09-15] MEDS: AZITHROMYCIN 500 MG in DEXT 5% WATER 250 ML IV SCH (09:27)
[2018-09-15 10:49] LABS: PLATELET ESTIMATE NORMAL
[2018-09-15] MEDS ORDERED: VANCOMYCIN 1 G PREMIX 200 ML IV SCH (12:00)
[2018-09-15] MEDS: SODIUM CHLORIDE 0.45% 1,000 ML IV SCH (12:57)
[2018-09-15] MEDS: MICAFUNGIN 100 MG in SODIUM CHLORIDE 0.9% 100 ML IV SCH (15:12)
[2018-09-15] MEDS: QUETIAPINE FUMARATE 25MG TABLET PO SCH (20:57)
[2018-09-15] MEDS ORDERED: POTASSIUM CHLORIDE INJ 40 MEQ in DEXT 5% WATER 250 ML IV NR (23:00)
[2018-09-15] MEDS: NOREPINEPHRINE 32 MG in DEXT 5% WATER 468 ML IV PRN (23:37)
[2018-09-16] VITALS (58 sets, daily range): BP systolic 88–152; BP diastolic 43–78
[2018-09-16] MEDS: METOCLOPRAMIDE HCL 10MG/2ML VIAL IV SCH ×4 (00:20→18:14)
[2018-09-16] MEDS: SODIUM CHLORIDE 0.45% 1,000 ML IV SCH ×2 (00:21→15:42)
[2018-09-16] MEDS: PHENYLEPHRINE 80 MG in DEXT 5% WATER 492 ML IV PRN (01:41)
[2018-09-16] MEDS: IPRATROPIUM BROMIDE (0.02%) 0.5MG/2.5ML NEB HHN SCH ×5 (03:19→20:05)
[2018-09-16] MEDS: PIPERACILLIN/TAZ 2.25G PREMIX 50 ML IV SCH ×4 (03:30→21:04)
[2018-09-16 06:10] LABS: MEAN CORPUSCULAR HEMOGLOBIN 29.3 pg (28.0-32.0); MEAN CORPUSCULAR VOLUME 86.6 fL (80.0-94.0); RED BLOOD CELL COUNT 2.22 mill/uL (4.7-6.1); RED CELL DISTRIBUTION WIDTH 15.5 % (11.6-14.6)
[2018-09-16 06:22] LABS: HEMATOCRIT. 19.2 % (42.0-52.0); HEMOGLOBIN. 6.5 g/dL (14.0-18.0)
[2018-09-16] MEDS: PROPOFOL 10MG/ML 100ML 100 ML IV PRN (06:58)
[2018-09-16 08:56] LABS: BG BASE EXCESS -2.4 mmol/L (-2.0-2.0); BG CARBOXYHEMOGLOBIN 0.9 % (0.5-1.5); BG DEOXYHEMOGLOBIN 5.2 % (0.0-5.0); BG FRACTION INSPIRED OXYGEN 35; BG HCO3 ACT 20.5 mmol/L (22.0-26.0); BG METHEMOGLOBIN 0.1 % (0.0-1.5); BG OXYGEN SATURATION 94.7 % (92.0-98.5); BG OXYHEMOGLOBIN 93.8 % (94.0-97.0); BG PCO2 27.4 mmHg (35.0-45.0); BG PH 7.491 (7.350-7.450); BG PO2 69.8 mmHg (75.0-100.0); BG SAMPLE SITE RIGHT RADIAL; BG TIDAL VOLUME(mL) 500 mL; BG TOTAL HEMOGLOBIN 7.7 g/dL (12.0-18.0); BG VENT MODE VENT - A/C; BG VENT RATE 10 set
[2018-09-16 09:07] LABS: PLATELET ESTIMATE NORMAL
[2018-09-16 09:09] LABS: PLATELET 274 x1000/uL (130-400)
[2018-09-16 09:26] LABS: MEAN CORPUSCULAR HEMOGLOBIN 29.2 pg (28.0-32.0); MEAN CORPUSCULAR VOLUME 85.3 fL (80.0-94.0); MEAN PLATELET VOLUME 9.3 fl (7.4-10.4); PLATELET 273 x1000/uL (130-400); RED BLOOD CELL COUNT 2.67 mill/uL (4.7-6.1); RED CELL DISTRIBUTION WIDTH 15.4 % (11.6-14.6)
[2018-09-16 10:06] LABS: HEMATOCRIT. 22.8 % (42.0-52.0); HEMOGLOBIN. 7.8 g/dL (14.0-18.0)
[2018-09-16] MEDS: TAMSULOSIN HCL 0.4MG SR CAPSULE PO SCH (10:51)
[2018-09-16] MEDS: FINASTERIDE 5MG TABLET PO SCH (10:51)
[2018-09-16] MEDS: CITRIC ACID/SODIUM CITRATE SOLN 30ML UDC PO SCH ×2 (10:51→18:14)
[2018-09-16] MEDS: PANTOPRAZOLE SODIUM 40 MG/VIAL IV SCH ×2 (10:51→21:04)
[2018-09-16] MEDS: AZITHROMYCIN 500 MG in DEXT 5% WATER 250 ML IV SCH (10:52)
[2018-09-16 10:58] LABS: PLATELET ESTIMATE NORMAL
[2018-09-16] MEDS ORDERED: PROPOFOL 10MG/ML 100ML 100 ML IV PRN (12:00)
[2018-09-16] MEDS: MICAFUNGIN 100 MG in SODIUM CHLORIDE 0.9% 100 ML IV SCH (15:42)
[2018-09-16] MEDS: VANCOMYCIN 1 G PREMIX 200 ML IV SCH (18:14)
[2018-09-16] MEDS: ACETAMINOPHEN 325MG TABLET PO PRN (18:15)
[2018-09-16] MEDS: QUETIAPINE FUMARATE 25MG TABLET PO SCH (21:04)
[2018-09-17] VITALS (88 sets, daily range): BP systolic 88–162; BP diastolic 53–85
[2018-09-17] MEDS: IPRATROPIUM BROMIDE (0.02%) 0.5MG/2.5ML NEB HHN SCH ×6 (00:16→20:58)
[2018-09-17] MEDS: METOCLOPRAMIDE HCL 10MG/2ML VIAL IV SCH ×4 (01:07→18:21)
[2018-09-17] MEDS: PIPERACILLIN/TAZ 2.25G PREMIX 50 ML IV SCH ×4 (03:06→20:48)
[2018-09-17] MEDS: SODIUM CHLORIDE 0.45% 1,000 ML IV SCH (03:07)
[2018-09-17 06:50] LABS: HEMOGLOBIN. 7.7 g/dL (14.0-18.0); MEAN CORPUSCULAR HEMOGLOBIN 28.6 pg (28.0-32.0); MEAN PLATELET VOLUME 9.4 fl (7.4-10.4); PLATELET 318 x1000/uL (130-400); RED BLOOD CELL COUNT 2.68 mill/uL (4.7-6.1); RED CELL DISTRIBUTION WIDTH 15.6 % (11.6-14.6)
[2018-09-17] MEDS ORDERED: POTASSIUM CHLORIDE 20MEQ/PACKET PO SCH (07:30)
[2018-09-17 09:59] LABS: BG CARBOXYHEMOGLOBIN 1.2 % (0.5-1.5); BG DEOXYHEMOGLOBIN 4.2 % (0.0-5.0); BG FRACTION INSPIRED OXYGEN 35; BG HCO3 ACT 20.8 mmol/L (22.0-26.0); BG METHEMOGLOBIN 0.3 % (0.0-1.5); BG OXYGEN SATURATION 95.7 % (92.0-98.5); BG OXYHEMOGLOBIN 94.3 % (94.0-97.0); BG PCO2 27.6 mmHg (35.0-45.0); BG PH 7.495 (7.350-7.450); BG PO2 76.2 mmHg (75.0-100.0); BG SAMPLE SITE LEFT RADIAL; BG TIDAL VOLUME(mL) 500 mL; BG TOTAL HEMOGLOBIN 7.7 g/dL (12.0-18.0); BG VENT MODE VENT - A/C; BG VENT RATE 10 set
[2018-09-17 10:46] LABS: NUCLEATED RED BLOOD CELLS 1 /100 WBC; PLATELET ESTIMATE NORMAL
[2018-09-17] MEDS: TAMSULOSIN HCL 0.4MG SR CAPSULE PO SCH (11:05)
[2018-09-17] MEDS: FINASTERIDE 5MG TABLET PO SCH (11:05)
[2018-09-17] MEDS: ACETAMINOPHEN 325MG TABLET PO PRN (11:05)
[2018-09-17] MEDS: PANTOPRAZOLE SODIUM 40 MG/VIAL IV SCH ×2 (11:06→20:48)
[2018-09-17] MEDS: AZITHROMYCIN 500 MG in DEXT 5% WATER 250 ML IV SCH (11:23)
[2018-09-17] MEDS: PROPOFOL 10MG/ML 100ML 100 ML IV PRN (13:38)
[2018-09-17 18:07] LABS: INR 1.2; PARTIAL THROMBOPLASTIN TIME 29.9 sec (23.4-31.0); PROTHROMBIN TIME 11.8 sec (9.1-11.1)
[2018-09-17] MEDS: MICAFUNGIN 100 MG in SODIUM CHLORIDE 0.9% 100 ML IV SCH (18:21)
[2018-09-17] MEDS: QUETIAPINE FUMARATE 25MG TABLET PO SCH (20:48)
[2018-09-18] VITALS (90 sets, daily range): BP systolic 107–148; BP diastolic 51–94
[2018-09-18] MEDS: IPRATROPIUM BROMIDE (0.02%) 0.5MG/2.5ML NEB HHN SCH ×6 (00:27→20:55)
[2018-09-18] MEDS: METOCLOPRAMIDE HCL 10MG/2ML VIAL IV SCH ×4 (00:39→17:49)
[2018-09-18] MEDS: PIPERACILLIN/TAZ 2.25G PREMIX 50 ML IV SCH (03:47)
[2018-09-18] MEDS: PROPOFOL 10MG/ML 100ML 100 ML IV PRN ×2 (05:26→15:12)
[2018-09-18] MEDS: VANCOMYCIN 1 G PREMIX 200 ML IV SCH (05:40)
[2018-09-18 05:56] LABS: MEAN CORPUSCULAR HEMOGLOBIN 29.2 pg (28.0-32.0); MEAN CORPUSCULAR VOLUME 86.9 fL (80.0-94.0); MEAN PLATELET VOLUME 9.4 fl (7.4-10.4); PLATELET 313 x1000/uL (130-400); RED BLOOD CELL COUNT 2.28 mill/uL (4.7-6.1); RED CELL DISTRIBUTION WIDTH 15.4 % (11.6-14.6)
[2018-09-18 06:44] LABS: HEMATOCRIT. 19.8 % (42.0-52.0); HEMOGLOBIN. 6.6 g/dL (14.0-18.0)
[2018-09-18 07:34] LABS: BG BASE EXCESS -0.1 mmol/L (-2.0-2.0); BG CARBOXYHEMOGLOBIN 2.4 % (0.5-1.5); BG DEOXYHEMOGLOBIN 2.8 % (0.0-5.0); BG OXYGEN SATURATION 97.1 % (92.0-98.5); BG OXYHEMOGLOBIN 93.8 % (94.0-97.0); BG PCO2 30.4 mmHg (35.0-45.0); BG PH 7.497 (7.350-7.450); BG PO2 85.4 mmHg (75.0-100.0); BG SAMPLE SITE RIGHT RADIAL; BG TIDAL VOLUME(mL) 500 mL; BG TOTAL HEMOGLOBIN 6.5 g/dL (12.0-18.0); BG VENT MODE VENT - A/C; BG VENT RATE 10 set
[2018-09-18] MEDS ORDERED: POTASSIUM CHLORIDE 20MEQ/PACKET PO SCH (08:00)
[2018-09-18 08:29] LABS: PLATELET ESTIMATE NORMAL
[2018-09-18] MEDS: FINASTERIDE 5MG TABLET PO SCH (10:01)
[2018-09-18] MEDS: TAMSULOSIN HCL 0.4MG SR CAPSULE PO SCH (10:02)
[2018-09-18] MEDS: PANTOPRAZOLE SODIUM 40 MG/VIAL IV SCH ×2 (10:02→20:47)
[2018-09-18 10:04] LABS: HEMATOCRIT. 21.2 % (42.0-52.0); HEMOGLOBIN. 7.1 g/dL (14.0-18.0); MEAN CORPUSCULAR HEMOGLOBIN 29.1 pg (28.0-32.0); MEAN CORPUSCULAR VOLUME 86.4 fL (80.0-94.0); MEAN PLATELET VOLUME 9.2 fl (7.4-10.4); PLATELET 334 x1000/uL (130-400); RED BLOOD CELL COUNT 2.46 mill/uL (4.7-6.1); RED CELL DISTRIBUTION WIDTH 15.7 % (11.6-14.6)
[2018-09-18 11:05] LABS: PLATELET ESTIMATE NORMAL
[2018-09-18] MEDS: MICAFUNGIN 100 MG in SODIUM CHLORIDE 0.9% 100 ML IV SCH (14:40)
[2018-09-18] MEDS: IPRATROPIUM/ALBUTEROL 0.5-3(2.5)MG/3ML NEB HHN PRN (15:58)
[2018-09-18] MEDS: QUETIAPINE FUMARATE 25MG TABLET PO SCH (20:47)
[2018-09-19] VITALS (75 sets, daily range): BP systolic 116–179; BP diastolic 47–95
[2018-09-19] MEDS: METOCLOPRAMIDE HCL 10MG/2ML VIAL IV SCH ×5 (00:09→23:13)
[2018-09-19] MEDS: IPRATROPIUM BROMIDE (0.02%) 0.5MG/2.5ML NEB HHN SCH ×6 (00:52→20:47)
[2018-09-19] MEDS: PROPOFOL 10MG/ML 100ML 100 ML IV PRN ×2 (01:34→10:05)
[2018-09-19 07:04] LABS: INR 1.1; PARTIAL THROMBOPLASTIN TIME 30.6 sec (23.4-31.0); PROTHROMBIN TIME 11.2 sec (9.1-11.1)
[2018-09-19 07:46] LABS: HEMATOCRIT. 24.9 % (42.0-52.0); HEMOGLOBIN. 8.4 g/dL (14.0-18.0); MEAN CORPUSCULAR HEMOGLOBIN 29.6 pg (28.0-32.0); MEAN PLATELET VOLUME 9.3 fl (7.4-10.4); PLATELET 382 x1000/uL (130-400); RED BLOOD CELL COUNT 2.83 mill/uL (4.7-6.1); RED CELL DISTRIBUTION WIDTH 15.5 % (11.6-14.6)
[2018-09-19] MEDS: TAMSULOSIN HCL 0.4MG SR CAPSULE PO SCH (09:00)
[2018-09-19] MEDS: FINASTERIDE 5MG TABLET PO SCH (09:00)
[2018-09-19 09:20] LABS: BG DEOXYHEMOGLOBIN 3.8 % (0.0-5.0); BG FRACTION INSPIRED OXYGEN 35; BG HCO3 ACT 21.1 mmol/L (22.0-26.0); BG METHEMOGLOBIN 0.3 % (0.0-1.5); BG OXYGEN SATURATION 96.1 % (92.0-98.5); BG OXYHEMOGLOBIN 94.9 % (94.0-97.0); BG PCO2 29.5 mmHg (35.0-45.0); BG PH 7.472 (7.350-7.450); BG SAMPLE SITE LEFT RADIAL; BG TIDAL VOLUME(mL) 500 mL; BG TOTAL HEMOGLOBIN 8.3 g/dL (12.0-18.0); BG VENT MODE VENT - A/C; BG VENT RATE 10 set
[2018-09-19] MEDS: PANTOPRAZOLE SODIUM 40 MG/VIAL IV SCH ×2 (10:05→20:57)
[2018-09-19 11:33] LABS: NUCLEATED RED BLOOD CELLS 1 /100 WBC
[2018-09-19 11:34] LABS: PLATELET ESTIMATE NORMAL
[2018-09-19] MEDS ORDERED: MIDAZOLAM HCL 2 MG/2 ML VIAL ONE (13:00)
[2018-09-19] MEDS ORDERED: ROCURONIUM BROMIDE 10MG/ML VIAL 5ML IV ONE ×2 (13:00→13:39)
[2018-09-19] MEDS ORDERED: FENTANYL CITRATE/PF 50MCG/ML 2ML VIAL ONE (13:00)
[2018-09-19] MEDS ORDERED: LORAZEPAM 2MG/ML CPJ IV PRN (13:15)
[2018-09-19] MEDS: MICAFUNGIN 100 MG in SODIUM CHLORIDE 0.9% 100 ML IV SCH (16:05)
[2018-09-19] MEDS: VANCOMYCIN 1 G PREMIX 200 ML IV SCH (19:26)
[2018-09-19] MEDS: QUETIAPINE FUMARATE 25MG TABLET PO SCH (20:58)
[2018-09-20] VITALS (51 sets, daily range): BP systolic 115–152; BP diastolic 62–87
[2018-09-20] MEDS: IPRATROPIUM BROMIDE (0.02%) 0.5MG/2.5ML NEB HHN SCH ×6 (00:36→20:24)
[2018-09-20] MEDS: METOCLOPRAMIDE HCL 10MG/2ML VIAL IV SCH ×4 (05:18→23:40)
[2018-09-20 05:42] LABS: HEMATOCRIT. 28.4 % (42.0-52.0); HEMOGLOBIN. 9.3 g/dL (14.0-18.0); MEAN CORPUSCULAR HEMOGLOBIN 27.8 pg (28.0-32.0); MEAN CORPUSCULAR VOLUME 84.5 fL (80.0-94.0); MEAN PLATELET VOLUME 8.3 fl (7.4-10.4); PLATELET 422 x1000/uL (130-400); RED BLOOD CELL COUNT 3.36 mill/uL (4.7-6.1); RED CELL DISTRIBUTION WIDTH 19.1 % (11.6-14.6)
[2018-09-20 07:06] LABS: INR 1.1; PARTIAL THROMBOPLASTIN TIME 30.1 sec (23.4-31.0); PROTHROMBIN TIME 11.5 sec (9.1-11.1)
[2018-09-20 07:52] LABS: BG CARBOXYHEMOGLOBIN 0.3 % (0.5-1.5); BG DEOXYHEMOGLOBIN 2.7 % (0.0-5.0); BG HCO3 ACT 22.1 mmol/L (22.0-26.0); BG METHEMOGLOBIN 0.3 % (0.0-1.5); BG OXYGEN SATURATION 97.3 % (92.0-98.5); BG OXYHEMOGLOBIN 96.7 % (94.0-97.0); BG PCO2 30.4 mmHg (35.0-45.0); BG PH 7.479 (7.350-7.450); BG PO2 92.2 mmHg (75.0-100.0); BG SAMPLE SITE RIGHT BRACHIAL; BG TIDAL VOLUME(mL) 500 mL; BG TOTAL HEMOGLOBIN 8.9 g/dL (12.0-18.0); BG VENT MODE VENT - A/C; BG VENT RATE 10 set
[2018-09-20] MEDS ORDERED: POTASSIUM CHLORIDE 20MEQ/PACKET PO SCH (08:30)
[2018-09-20] MEDS: FINASTERIDE 5MG TABLET PO SCH (09:00)
[2018-09-20] MEDS: TAMSULOSIN HCL 0.4MG SR CAPSULE PO SCH (09:00)
[2018-09-20 09:28] LABS: PLATELET ESTIMATE INCREASED
[2018-09-20] MEDS: PANTOPRAZOLE SODIUM 40 MG/VIAL IV SCH ×2 (09:47→20:26)
[2018-09-20] MEDS ORDERED: LORAZEPAM 2MG/ML CPJ IV PRN (13:15)
[2018-09-20] MEDS: MICAFUNGIN 100 MG in SODIUM CHLORIDE 0.9% 100 ML IV SCH (14:48)
[2018-09-20] MEDS ORDERED: MIDAZOLAM HCL 5 MG/5 ML VIAL ONE (15:52)
[2018-09-20] MEDS ORDERED: SIMETHICONE 40 MG/0.6 ML 30ML ONE (15:52)
[2018-09-20] MEDS ORDERED: FENTANYL CITRATE/PF 50MCG/ML 2ML VIAL ONE (15:52)
[2018-09-20] MEDS ORDERED: NORMAL SALINE 0.9% 10 ML SYR ONE (15:54)
[2018-09-20] MEDS ORDERED: MIDAZOLAM HCL 5 MG/5 ML VIAL IV PRN (17:00)
[2018-09-20] MEDS: ACETAMINOPHEN 325MG TABLET PO PRN (18:03)
[2018-09-20] MEDS: QUETIAPINE FUMARATE 25MG TABLET PO SCH (20:27)
[2018-09-21] VITALS (32 sets, daily range): BP systolic 128–166; BP diastolic 59–97
[2018-09-21] MEDS: IPRATROPIUM BROMIDE (0.02%) 0.5MG/2.5ML NEB HHN SCH ×6 (00:24→19:57)
[2018-09-21] MEDS: VANCOMYCIN 1 G PREMIX 200 ML IV SCH (05:54)
[2018-09-21] MEDS: METOCLOPRAMIDE HCL 10MG/2ML VIAL IV SCH (05:54)
[2018-09-21 06:17] LABS: HEMATOCRIT. 28.5 % (42.0-52.0); HEMOGLOBIN. 9.1 g/dL (14.0-18.0); MEAN CORPUSCULAR HEMOGLOBIN 27.3 pg (28.0-32.0); MEAN CORPUSCULAR VOLUME 85.5 fL (80.0-94.0); MEAN PLATELET VOLUME 8.3 fl (7.4-10.4); PLATELET 430 x1000/uL (130-400); RED BLOOD CELL COUNT 3.33 mill/uL (4.7-6.1); RED CELL DISTRIBUTION WIDTH 19.4 % (11.6-14.6)
[2018-09-21 06:20] LABS: CHLORIDE 117 mEq/L (98-107)
[2018-09-21 06:26] LABS: PHOSPHORUS 4.3 mg/dL (2.5-4.9)
[2018-09-21 07:27] LABS: PLATELET ESTIMATE INCREASED
[2018-09-21] MEDS: PANTOPRAZOLE SODIUM 40 MG/VIAL IV SCH ×2 (08:59→20:45)
[2018-09-21] MEDS: TAMSULOSIN HCL 0.4MG SR CAPSULE PO SCH (08:59)
[2018-09-21] MEDS: FINASTERIDE 5MG TABLET PO SCH (09:00)
[2018-09-21] MEDS: MICAFUNGIN 100 MG in SODIUM CHLORIDE 0.9% 100 ML IV SCH (15:12)
[2018-09-21] MEDS: ACETAMINOPHEN 325MG TABLET PO PRN (20:21)
[2018-09-21] MEDS: QUETIAPINE FUMARATE 25MG TABLET PO SCH (20:45)
[2018-09-22] VITALS (15 sets, daily range): BP systolic 124–165; BP diastolic 57–84
[2018-09-22] MEDS: IPRATROPIUM BROMIDE (0.02%) 0.5MG/2.5ML NEB HHN SCH ×6 (04:08→20:37)
[2018-09-22 06:05] LABS: HEMATOCRIT. 27.6 % (42.0-52.0); MEAN CORPUSCULAR HEMOGLOBIN 27.8 pg (28.0-32.0); MEAN CORPUSCULAR VOLUME 84.9 fL (80.0-94.0); MEAN PLATELET VOLUME 8.2 fl (7.4-10.4); PLATELET 413 x1000/uL (130-400); RED BLOOD CELL COUNT 3.25 mill/uL (4.7-6.1); RED CELL DISTRIBUTION WIDTH 18.8 % (11.6-14.6)
[2018-09-22 06:28] LABS: PHOSPHORUS 3.3 mg/dL (2.5-4.9)
[2018-09-22 08:56] LABS: PLATELET ESTIMATE SLIGHTLY INCREASED
[2018-09-22] MEDS: CARVEDILOL 3.125 MG TABLET PO SCH ×2 (09:24→20:51)
[2018-09-22] MEDS: PANTOPRAZOLE SODIUM 40 MG/VIAL IV SCH ×2 (09:24→20:50)
[2018-09-22] MEDS: FINASTERIDE 5MG TABLET PO SCH (09:24)
[2018-09-22] MEDS: ACETAMINOPHEN 325MG TABLET PO PRN ×2 (09:25→16:46)
[2018-09-22] MEDS: TAMSULOSIN HCL 0.4MG SR CAPSULE PO SCH (09:25)
[2018-09-22] MEDS ORDERED: POTASSIUM CHLORIDE 20MEQ/PACKET PO NR (12:15)
[2018-09-22] MEDS: DEXT 5% WATER + KCL 20MEQ/L 1,000 ML IV SCH (15:53)
[2018-09-22] MEDS: QUETIAPINE FUMARATE 25MG TABLET PO SCH (20:51)
[2018-09-23] VITALS (12 sets, daily range): BP systolic 123–168; BP diastolic 55–76
[2018-09-23] MEDS: IPRATROPIUM BROMIDE (0.02%) 0.5MG/2.5ML NEB HHN SCH ×6 (00:34→20:09)
[2018-09-23 07:13] LABS: HEMATOCRIT. 30.8 % (42.0-52.0); HEMOGLOBIN. 9.9 g/dL (14.0-18.0); MEAN CORPUSCULAR HEMOGLOBIN 28.3 pg (28.0-32.0); MEAN CORPUSCULAR VOLUME 87.8 fL (80.0-94.0); RED BLOOD CELL COUNT 3.51 mill/uL (4.7-6.1); RED CELL DISTRIBUTION WIDTH 19.7 % (11.6-14.6)
[2018-09-23] MEDS: CARVEDILOL 3.125 MG TABLET PO SCH (09:00)
[2018-09-23] MEDS: DEXT 5% WATER + KCL 20MEQ/L 1,000 ML IV SCH ×2 (09:00→20:55)
[2018-09-23] MEDS: PANTOPRAZOLE SODIUM 40 MG/VIAL IV SCH ×2 (09:00→20:54)
[2018-09-23] MEDS: TAMSULOSIN HCL 0.4MG SR CAPSULE PO SCH (09:01)
[2018-09-23] MEDS: FINASTERIDE 5MG TABLET PO SCH (09:01)
[2018-09-23 09:35] LABS: PLATELET 249 x1000/uL (130-400)
[2018-09-23 09:39] LABS: PLATELET ESTIMATE NORMAL
[2018-09-23] MEDS: QUETIAPINE FUMARATE 25MG TABLET PO SCH (20:54)
[2018-09-23] MEDS: CARVEDILOL 6.25 MG TABLET PO SCH (20:55)
[2018-09-23] MEDS: ACETAMINOPHEN 650MG/20.3ML UDC PO PRN (20:57)
[2018-09-24] VITALS (12 sets, daily range): BP systolic 99–152; BP diastolic 46–98
[2018-09-24] MEDS: IPRATROPIUM BROMIDE (0.02%) 0.5MG/2.5ML NEB HHN SCH ×6 (00:18→20:28)
[2018-09-24 07:43] LABS: HEMATOCRIT. 25.5 % (42.0-52.0); HEMOGLOBIN. 8.1 g/dL (14.0-18.0); MEAN CORPUSCULAR HEMOGLOBIN 27.5 pg (28.0-32.0); MEAN CORPUSCULAR VOLUME 86.3 fL (80.0-94.0); MEAN PLATELET VOLUME 8.6 fl (7.4-10.4); PLATELET 309 x1000/uL (130-400); RED BLOOD CELL COUNT 2.95 mill/uL (4.7-6.1); RED CELL DISTRIBUTION WIDTH 19.3 % (11.6-14.6)
[2018-09-24] MEDS: FINASTERIDE 5MG TABLET PO SCH (08:51)
[2018-09-24] MEDS: PANTOPRAZOLE SODIUM 40 MG/VIAL IV SCH ×2 (08:51→20:41)
[2018-09-24] MEDS: TAMSULOSIN HCL 0.4MG SR CAPSULE PO SCH (08:52)
[2018-09-24] MEDS: CARVEDILOL 6.25 MG TABLET PO SCH ×2 (08:52→20:41)
[2018-09-24 09:33] LABS: PLATELET ESTIMATE NORMAL
[2018-09-24] MEDS: ACETAMINOPHEN 650MG/20.3ML UDC PO PRN (15:23)
[2018-09-24] MEDS: DEXT 5% WATER + KCL 20MEQ/L 1,000 ML IV SCH (16:24)
[2018-09-24] MEDS: QUETIAPINE FUMARATE 25MG TABLET PO SCH (20:41)
[2018-09-25] VITALS (11 sets, daily range): BP systolic 116–148; BP diastolic 48–71
[2018-09-25] MEDS: ACETAMINOPHEN 650MG/20.3ML UDC PO PRN ×3 (00:13→20:54)
[2018-09-25] MEDS: IPRATROPIUM BROMIDE (0.02%) 0.5MG/2.5ML NEB HHN SCH ×6 (00:35→20:31)
[2018-09-25] MEDS: ACETYLCYSTEINE 100MG/ML 10% VIAL 4ML INH SCH ×3 (00:36→17:31)
[2018-09-25] MEDS: DEXT 5% WATER + KCL 20MEQ/L 1,000 ML IV SCH (03:34)
[2018-09-25 07:47] LABS: HEMOGLOBIN. 7.4 g/dL (14.0-18.0); MEAN CORPUSCULAR HEMOGLOBIN 27.5 pg (28.0-32.0); MEAN CORPUSCULAR VOLUME 85.8 fL (80.0-94.0); MEAN PLATELET VOLUME 8.8 fl (7.4-10.4); PLATELET 303 x1000/uL (130-400); RED BLOOD CELL COUNT 2.68 mill/uL (4.7-6.1); RED CELL DISTRIBUTION WIDTH 19.3 % (11.6-14.6)
[2018-09-25] MEDS: FINASTERIDE 5MG TABLET PO SCH (08:38)
[2018-09-25] MEDS: PANTOPRAZOLE SODIUM 40 MG/VIAL IV SCH ×2 (08:39→20:38)
[2018-09-25] MEDS: TAMSULOSIN HCL 0.4MG SR CAPSULE PO SCH (08:39)
[2018-09-25] MEDS: CARVEDILOL 6.25 MG TABLET PO SCH ×2 (08:39→20:39)
[2018-09-25 16:11] LABS: PLATELET ESTIMATE NORMAL
[2018-09-25] MEDS: QUETIAPINE FUMARATE 25MG TABLET PO SCH (20:40)
[2018-09-26] VITALS (12 sets, daily range): BP systolic 102–138; BP diastolic 51–68
[2018-09-26] MEDS: IPRATROPIUM BROMIDE (0.02%) 0.5MG/2.5ML NEB HHN SCH ×7 (00:09→23:57)
[2018-09-26] MEDS: ACETYLCYSTEINE 100MG/ML 10% VIAL 4ML INH SCH ×4 (00:09→23:57)
[2018-09-26] MEDS: DEXT 5% WATER + KCL 20MEQ/L 1,000 ML IV SCH (03:09)
[2018-09-26] MEDS: PANTOPRAZOLE SODIUM 40 MG/VIAL IV SCH ×2 (09:02→21:10)
[2018-09-26] MEDS: TAMSULOSIN HCL 0.4MG SR CAPSULE PO SCH (09:03)
[2018-09-26] MEDS: FINASTERIDE 5MG TABLET PO SCH (09:03)
[2018-09-26] MEDS: CARVEDILOL 6.25 MG TABLET PO SCH ×2 (09:04→21:11)
[2018-09-26 10:03] LABS: HEMOGLOBIN. 7.5 g/dL (14.0-18.0); MEAN CORPUSCULAR HEMOGLOBIN 27.7 pg (28.0-32.0); MEAN CORPUSCULAR VOLUME 85.4 fL (80.0-94.0); PLATELET 308 x1000/uL (130-400); RED BLOOD CELL COUNT 2.69 mill/uL (4.7-6.1)
[2018-09-26 14:20] LABS: PLATELET ESTIMATE NORMAL
[2018-09-26] MEDS: ACETAMINOPHEN 650MG/20.3ML UDC PO PRN (17:40)
[2018-09-26] MEDS: QUETIAPINE FUMARATE 25MG TABLET PO SCH (21:10)
[2018-09-27] VITALS (12 sets, daily range): BP systolic 91–140; BP diastolic 57–67
[2018-09-27] MEDS: IPRATROPIUM BROMIDE (0.02%) 0.5MG/2.5ML NEB HHN SCH ×5 (04:10→20:05)
[2018-09-27 08:12] LABS: HEMATOCRIT. 25.1 % (42.0-52.0); HEMOGLOBIN. 8.1 g/dL (14.0-18.0); MEAN CORPUSCULAR HEMOGLOBIN 27.6 pg (28.0-32.0); MEAN CORPUSCULAR VOLUME 85.8 fL (80.0-94.0); MEAN PLATELET VOLUME 9.7 fl (7.4-10.4); PLATELET 352 x1000/uL (130-400); RED BLOOD CELL COUNT 2.92 mill/uL (4.7-6.1); RED CELL DISTRIBUTION WIDTH 19.2 % (11.6-14.6)
[2018-09-27] MEDS: ACETYLCYSTEINE 100MG/ML 10% VIAL 4ML INH SCH ×2 (08:23→16:06)
[2018-09-27] MEDS: PANTOPRAZOLE SODIUM 40 MG/VIAL IV SCH ×2 (09:35→20:37)
[2018-09-27] MEDS: FINASTERIDE 5MG TABLET PO SCH (09:35)
[2018-09-27] MEDS: CARVEDILOL 6.25 MG TABLET PO SCH ×2 (09:36→20:29)
[2018-09-27] MEDS: TAMSULOSIN HCL 0.4MG SR CAPSULE PO SCH (09:36)
[2018-09-27 10:29] LABS: PLATELET ESTIMATE NORMAL
[2018-09-27] MEDS: IPRATROPIUM/ALBUTEROL 0.5-3(2.5)MG/3ML NEB HHN PRN (12:10)
[2018-09-27] MEDS: QUETIAPINE FUMARATE 25MG TABLET PO SCH (20:37)
[2018-09-27] MEDS: ACETAMINOPHEN 650MG/20.3ML UDC PO PRN (20:38)
[2018-09-28] VITALS (12 sets, daily range): BP systolic 90–132; BP diastolic 54–80
[2018-09-28] MEDS: IPRATROPIUM BROMIDE (0.02%) 0.5MG/2.5ML NEB HHN SCH ×6 (00:02→21:01)
[2018-09-28] MEDS: ACETYLCYSTEINE 100MG/ML 10% VIAL 4ML INH SCH ×3 (00:02→16:52)
[2018-09-28 06:40] LABS: HEMATOCRIT. 25.3 % (42.0-52.0); HEMOGLOBIN. 8.2 g/dL (14.0-18.0); MEAN CORPUSCULAR HEMOGLOBIN 27.9 pg (28.0-32.0); MEAN CORPUSCULAR VOLUME 85.5 fL (80.0-94.0); MEAN PLATELET VOLUME 9.3 fl (7.4-10.4); PLATELET 373 x1000/uL (130-400); RED BLOOD CELL COUNT 2.96 mill/uL (4.7-6.1); RED CELL DISTRIBUTION WIDTH 19.1 % (11.6-14.6)
[2018-09-28 07:43] LABS: PLATELET ESTIMATE NORMAL
[2018-09-28] MEDS: PANTOPRAZOLE SODIUM 40 MG/VIAL IV SCH ×2 (08:35→21:39)
[2018-09-28] MEDS: CARVEDILOL 6.25 MG TABLET PO SCH ×2 (08:36→21:00)
[2018-09-28] MEDS: TAMSULOSIN HCL 0.4MG SR CAPSULE PO SCH (08:36)
[2018-09-28] MEDS: FINASTERIDE 5MG TABLET PO SCH (08:36)
[2018-09-28] MEDS ORDERED: POTASSIUM CHLORIDE 20MEQ TABLET SR PO NR (14:00)
[2018-09-28] MEDS ORDERED: POTASSIUM CHLORIDE 20MEQ TABLET SR PO ONE (17:45)
[2018-09-28] MEDS: QUETIAPINE FUMARATE 25MG TABLET PO SCH (21:39)
[2018-09-28] MEDS: ACETAMINOPHEN 650MG/20.3ML UDC PO PRN (21:39)
[2018-09-28] MEDS: ACETAMINOPHEN 650MG SUPP PR PRN (23:57)
[2018-09-29] VITALS (13 sets, daily range): BP systolic 93–108; BP diastolic 52–68
[2018-09-29] MEDS: ACETYLCYSTEINE 100MG/ML 10% VIAL 4ML INH SCH ×3 (00:57→14:48)
[2018-09-29] MEDS: IPRATROPIUM BROMIDE (0.02%) 0.5MG/2.5ML NEB HHN SCH ×4 (00:58→20:21)
[2018-09-29] MEDS: ACETAMINOPHEN 650MG/20.3ML UDC PO PRN ×3 (05:49→20:30)
[2018-09-29] MEDS: FINASTERIDE 5MG TABLET PO SCH (08:32)
[2018-09-29] MEDS: CARVEDILOL 6.25 MG TABLET PO SCH ×2 (08:34→20:19)
[2018-09-29] MEDS: PANTOPRAZOLE SODIUM 40 MG/VIAL IV SCH ×2 (08:37→20:23)
[2018-09-29] MEDS: TAMSULOSIN HCL 0.4MG SR CAPSULE PO SCH (08:37)
[2018-09-29 10:24] LABS: BG BASE EXCESS 2.7 mmol/L (-2.0-2.0); BG CARBOXYHEMOGLOBIN 0.6 % (0.5-1.5); BG DEOXYHEMOGLOBIN 1.4 % (0.0-5.0); BG FRACTION INSPIRED OXYGEN 35; BG HCO3 ACT 26.2 mmol/L (22.0-26.0); BG METHEMOGLOBIN 0.4 % (0.0-1.5); BG OXYGEN SATURATION 98.6 % (92.0-98.5); BG OXYHEMOGLOBIN 97.6 % (94.0-97.0); BG PCO2 35.6 mmHg (35.0-45.0); BG PH 7.485 (7.350-7.450); BG PO2 133.1 mmHg (75.0-100.0); BG PRESSURE SUPPORT 16; BG SAMPLE SITE RIGHT RADIAL; BG TIDAL VOLUME(mL) 500 mL; BG TOTAL HEMOGLOBIN 7.8 g/dL (12.0-18.0); BG VENT MODE VENT - SIMV; BG VENT RATE 10 set
[2018-09-29] MEDS: QUETIAPINE FUMARATE 25MG TABLET PO SCH (20:19)
[2018-09-30] VITALS (11 sets, daily range): BP systolic 93–125; BP diastolic 51–85
[2018-09-30] MEDS: IPRATROPIUM BROMIDE (0.02%) 0.5MG/2.5ML NEB HHN SCH ×3 (02:05→20:22)
[2018-09-30] MEDS: ACETAMINOPHEN 650MG/20.3ML UDC PO PRN ×2 (02:39→19:57)
[2018-09-30 07:42] LABS: HEMATOCRIT. 21.8 % (42.0-52.0); HEMOGLOBIN. 7.4 g/dL (14.0-18.0); MEAN CORPUSCULAR HEMOGLOBIN 28.9 pg (28.0-32.0); MEAN CORPUSCULAR VOLUME 84.9 fL (80.0-94.0); PLATELET 436 x1000/uL (130-400); RED BLOOD CELL COUNT 2.57 mill/uL (4.7-6.1); RED CELL DISTRIBUTION WIDTH 18.9 % (11.6-14.6)
[2018-09-30] MEDS: IPRATROPIUM/ALBUTEROL 0.5-3(2.5)MG/3ML NEB HHN PRN (07:53)
[2018-09-30] MEDS: ACETYLCYSTEINE 100MG/ML 10% VIAL 4ML INH SCH (07:53)
[2018-09-30] MEDS: PANTOPRAZOLE SODIUM 40 MG/VIAL IV SCH ×2 (08:31→20:24)
[2018-09-30 08:32] LABS: CHLORIDE 116 mEq/L (98-107)
[2018-09-30] MEDS: CARVEDILOL 6.25 MG TABLET PO SCH ×2 (08:32→20:24)
[2018-09-30] MEDS: FINASTERIDE 5MG TABLET PO SCH (08:32)
[2018-09-30] MEDS: TAMSULOSIN HCL 0.4MG SR CAPSULE PO SCH (08:33)
[2018-09-30 09:05] LABS: BG BASE EXCESS -0.5 mmol/L (-2.0-2.0); BG CARBOXYHEMOGLOBIN 0.3 % (0.5-1.5); BG DEOXYHEMOGLOBIN 1.9 % (0.0-5.0); BG FRACTION INSPIRED OXYGEN 35; BG HCO3 ACT 23.4 mmol/L (22.0-26.0); BG METHEMOGLOBIN 0.3 % (0.0-1.5); BG OXYGEN SATURATION 98.1 % (92.0-98.5); BG OXYHEMOGLOBIN 97.5 % (94.0-97.0); BG PCO2 35.6 mmHg (35.0-45.0); BG PH 7.436 (7.350-7.450); BG PO2 113.3 mmHg (75.0-100.0); BG PRESSURE SUPPORT 16; BG SAMPLE SITE RIGHT BRACHIAL; BG TIDAL VOLUME(mL) 500 mL; BG TOTAL HEMOGLOBIN 9.2 g/dL (12.0-18.0); BG VENT MODE VENT - SIMV; BG VENT RATE 8 set
[2018-09-30] MEDS ORDERED: POTASSIUM CHLORIDE 20MEQ TABLET SR PO NR (11:00)
[2018-09-30 12:34] LABS: PLATELET ESTIMATE SLIGHTLY INCREASED
[2018-09-30 13:04] LABS: PHOSPHORUS 2.9 mg/dL (2.5-4.9)
[2018-09-30] MEDS: QUETIAPINE FUMARATE 25MG TABLET PO SCH (20:24)
[2018-10-01] VITALS: BP 97/55
[2018-10-01] MEDS: IPRATROPIUM BROMIDE (0.02%) 0.5MG/2.5ML NEB HHN SCH ×3 (01:30→20:36)
[2018-10-01 02:00] VITALS: BP 94/57
[2018-10-01 04:00] VITALS: BP 109/56
[2018-10-01 06:00] VITALS: BP 102/63
[2018-10-01 06:30] LABS: HEMATOCRIT. 22.7 % (42.0-52.0); HEMOGLOBIN. 7.6 g/dL (14.0-18.0); MEAN CORPUSCULAR HEMOGLOBIN 28.2 pg (28.0-32.0); MEAN CORPUSCULAR VOLUME 84.8 fL (80.0-94.0); MEAN PLATELET VOLUME 8.6 fl (7.4-10.4); PLATELET 476 x1000/uL (130-400); RED BLOOD CELL COUNT 2.68 mill/uL (4.7-6.1); RED CELL DISTRIBUTION WIDTH 18.8 % (11.6-14.6)
[2018-10-01] MEDS: FINASTERIDE 5MG TABLET PO SCH (08:39)
[2018-10-01] MEDS: TAMSULOSIN HCL 0.4MG SR CAPSULE PO SCH (08:41)
[2018-10-01] MEDS: CARVEDILOL 6.25 MG TABLET PO SCH ×2 (08:42→21:00)
[2018-10-01] MEDS: PANTOPRAZOLE SODIUM 40 MG/VIAL IV SCH ×2 (08:45→21:12)
[2018-10-01] MEDS ORDERED: POTASSIUM CHLORIDE 20MEQ/PACKET PO NR (08:45)
[2018-10-01 09:47] LABS: BG BASE EXCESS 1.3 mmol/L (-2.0-2.0); BG CARBOXYHEMOGLOBIN 0.1 % (0.5-1.5); BG DEOXYHEMOGLOBIN 2.9 % (0.0-5.0); BG FRACTION INSPIRED OXYGEN 35; BG METHEMOGLOBIN 2.2 % (0.0-1.5); BG OXYHEMOGLOBIN 94.8 % (94.0-97.0); BG PCO2 35.9 mmHg (35.0-45.0); BG PH 7.461 (7.350-7.450); BG PO2 111.3 mmHg (75.0-100.0); BG PRESSURE SUPPORT 16; BG SAMPLE SITE LEFT RADIAL; BG TIDAL VOLUME(mL) 500 mL; BG TOTAL HEMOGLOBIN 8.5 g/dL (12.0-18.0); BG VENT MODE VENT - SIMV; BG VENT RATE 8 set
[2018-10-01] MEDS ORDERED: POTASSIUM CHLORIDE 10MEQ TABLET SR PO SCH (13:17)
[2018-10-01] MEDS: ACETAMINOPHEN 650MG/20.3ML UDC PO PRN (13:22)
[2018-10-01 14:07] LABS: PLATELET ESTIMATE INCREASED
[2018-10-01 20:00] VITALS: BP 102/74
[2018-10-01] MEDS: QUETIAPINE FUMARATE 25MG TABLET PO SCH (21:12)
[2018-10-01 22:00] VITALS: BP 108/49
[2018-10-02] VITALS (12 sets, daily range): BP systolic 94–126; BP diastolic 42–69
[2018-10-02] MEDS: IPRATROPIUM/ALBUTEROL 0.5-3(2.5)MG/3ML NEB HHN PRN (02:02)
[2018-10-02 07:01] LABS: HEMATOCRIT. 23.7 % (42.0-52.0); MEAN CORPUSCULAR HEMOGLOBIN 28.4 pg (28.0-32.0); MEAN CORPUSCULAR VOLUME 84.1 fL (80.0-94.0); MEAN PLATELET VOLUME 8.3 fl (7.4-10.4); PLATELET 558 x1000/uL (130-400); RED BLOOD CELL COUNT 2.81 mill/uL (4.7-6.1); RED CELL DISTRIBUTION WIDTH 19.2 % (11.6-14.6)
[2018-10-02 07:13] LABS: CHLORIDE 117 mEq/L (98-107)
[2018-10-02 07:26] LABS: PHOSPHORUS 3.1 mg/dL (2.5-4.9)
[2018-10-02] MEDS: IPRATROPIUM BROMIDE (0.02%) 0.5MG/2.5ML NEB HHN SCH ×3 (07:57→19:43)
[2018-10-02] MEDS: CARVEDILOL 6.25 MG TABLET PO SCH ×2 (08:11→21:00)
[2018-10-02] MEDS: PANTOPRAZOLE SODIUM 40 MG/VIAL IV SCH ×2 (08:12→21:48)
[2018-10-02] MEDS: FINASTERIDE 5MG TABLET PO SCH (08:12)
[2018-10-02] MEDS: ACETAMINOPHEN 650MG/20.3ML UDC PO PRN ×2 (08:12→21:48)
[2018-10-02] MEDS: TAMSULOSIN HCL 0.4MG SR CAPSULE PO SCH (08:12)
[2018-10-02 10:22] LABS: PLATELET ESTIMATE INCREASED
[2018-10-02] MEDS: QUETIAPINE FUMARATE 25MG TABLET PO SCH (21:48)
[2018-10-03] VITALS (12 sets, daily range): BP systolic 93–124; BP diastolic 50–84
[2018-10-03] MEDS: IPRATROPIUM BROMIDE (0.02%) 0.5MG/2.5ML NEB HHN SCH ×4 (02:05→20:43)
[2018-10-03] MEDS: ACETAMINOPHEN 650MG/20.3ML UDC PO PRN ×2 (08:38→17:36)
[2018-10-03] MEDS: PANTOPRAZOLE SODIUM 40 MG/VIAL IV SCH ×2 (08:38→20:45)
[2018-10-03] MEDS: FINASTERIDE 5MG TABLET PO SCH (08:40)
[2018-10-03] MEDS: CARVEDILOL 6.25 MG TABLET PO SCH ×2 (08:40→20:45)
[2018-10-03] MEDS: TAMSULOSIN HCL 0.4MG SR CAPSULE PO SCH (08:41)
[2018-10-03 12:16] LABS: BASOPHILS % 0.4 % (0.0-2.0); EOSINOPHILS % 2.1 % (0.0-5.0); HEMATOCRIT. 24.2 % (42.0-52.0); HEMOGLOBIN. 7.9 g/dL (14.0-18.0); LYMPHOCYTES % 7.2 % (20.0-50.0); MEAN PLATELET VOLUME 7.8 fl (7.4-10.4); MONOCYTES % 8.4 % (2.0-8.0); NEUTROPHILS % 81.9 % (40.0-76.0); PLATELET 552 x1000/uL (130-400); RED BLOOD CELL COUNT 2.84 mill/uL (4.7-6.1); RED CELL DISTRIBUTION WIDTH 19.2 % (11.6-14.6)
[2018-10-03 12:39] LABS: CHLORIDE 119 mEq/L (98-107)
[2018-10-03] MEDS: QUETIAPINE FUMARATE 25MG TABLET PO SCH (20:45)
[2018-10-04] VITALS (12 sets, daily range): BP systolic 93–139; BP diastolic 45–67
[2018-10-04] MEDS: IPRATROPIUM BROMIDE (0.02%) 0.5MG/2.5ML NEB HHN SCH ×4 (01:43→19:53)
[2018-10-04] MEDS: ACETAMINOPHEN 650MG/20.3ML UDC PO PRN ×3 (02:07→14:27)
[2018-10-04 07:01] LABS: BASOPHILS % 0.5 % (0.0-2.0); HEMATOCRIT. 24.6 % (42.0-52.0); LYMPHOCYTES % 8.4 % (20.0-50.0); MEAN CORPUSCULAR VOLUME 85.8 fL (80.0-94.0); MEAN PLATELET VOLUME 8.2 fl (7.4-10.4); MONOCYTES % 7.9 % (2.0-8.0); NEUTROPHILS % 81.2 % (40.0-76.0); PLATELET 594 x1000/uL (130-400); RED BLOOD CELL COUNT 2.87 mill/uL (4.7-6.1)
[2018-10-04 07:18] LABS: BG BASE EXCESS 3.7 mmol/L (-2.0-2.0); BG CARBOXYHEMOGLOBIN 0.1 % (0.5-1.5); BG CPAP (cmH2O) 0 cm(H2O); BG DEOXYHEMOGLOBIN 2.2 % (0.0-5.0); BG HCO3 ACT 28.6 mmol/L (22.0-26.0); BG METHEMOGLOBIN 0.2 % (0.0-1.5); BG OXYGEN SATURATION 97.8 % (92.0-98.5); BG OXYHEMOGLOBIN 97.5 % (94.0-97.0); BG PCO2 45.1 mmHg (35.0-45.0); BG PO2 111.4 mmHg (75.0-100.0); BG SAMPLE SITE RIGHT RADIAL; BG TOTAL HEMOGLOBIN 9.6 g/dL (12.0-18.0); BG VENT MODE VENT - CPAP
[2018-10-04] MEDS ORDERED: POTASSIUM CHLORIDE 20MEQ/PACKET PO SCH (08:15)
[2018-10-04] MEDS ORDERED: DEXTROSE 5% WATER 1,000 ML IV SCH (08:15)
[2018-10-04] MEDS: PANTOPRAZOLE SODIUM 40 MG/VIAL IV SCH (09:01)
[2018-10-04] MEDS: FINASTERIDE 5MG TABLET PO SCH (09:03)
[2018-10-04] MEDS: CARVEDILOL 6.25 MG TABLET PO SCH ×2 (09:04→09:09)
[2018-10-04] MEDS: TAMSULOSIN HCL 0.4MG SR CAPSULE PO SCH (09:04)
== END 2018-10-04 20:38 | DRG 3 ==
LOC: ER 21:44 → 6EST 08-26 04:52 → EDBEDREQ 08-26 05:08 → EDBEDREQTM 08-26 05:08 → ENRESERV 08-26 07:50 → 5EST 08-28 07:43 → MICUNO 08-28 08:32 → MICUSO 08-28 08:40 → 5EST 09-06 22:45 → CVICU 09-11 06:21 → 5EST 09-22 13:17
PROVIDERS: ADMIT Internal Medicine; ATTEND Internal Medicine
PROC: 5A1955Z Respiratory Ventilation, Greater than 96 Consecutive Hours (ICD-10-PCS; principal; 2018-08-28)
PROC: 0BH17EZ Insertion of Endotracheal Airway into Trachea, Via Natural or Artificial Opening (ICD-10-PCS; 2018-08-28)
PROC: 02HV33Z Insertion of Infusion Device into Superior Vena Cava, Percutaneous Approach (ICD-10-PCS; 2018-09-01)
PROC: B548ZZA Ultrasonography of Superior Vena Cava, Guidance (ICD-10-PCS; 2018-09-01)
PROC: 03HY32Z Insertion of Monitoring Device into Upper Artery, Percutaneous Approach (ICD-10-PCS; 2018-09-11)
PROC: 4A133B1 Monitoring of Arterial Pressure, Peripheral, Percutaneous Approach (ICD-10-PCS; 2018-09-11)
PROC: 4A133J1 Monitoring of Arterial Pulse, Peripheral, Percutaneous Approach (ICD-10-PCS; 2018-09-11)
PROC: 0BH17EZ Insertion of Endotracheal Airway into Trachea, Via Natural or Artificial Opening (ICD-10-PCS; 2018-09-11)
PROC: 5A1955Z Respiratory Ventilation, Greater than 96 Consecutive Hours (ICD-10-PCS; 2018-09-11)
PROC: 5A09357 Assistance with Respiratory Ventilation, Less than 24 Consecutive Hours, Continuous Positive Airway Pressure (ICD-10-PCS; 2018-09-11)
PROC: 30233N1 Transfusion of Nonautologous Red Blood Cells into Peripheral Vein, Percutaneous Approach (ICD-10-PCS; 2018-09-13)
PROC: 0GBJ0ZZ Excision of Thyroid Gland Isthmus, Open Approach (ICD-10-PCS; 2018-09-19)
PROC: 0B110F4 Bypass Trachea to Cutaneous with Tracheostomy Device, Open Approach (ICD-10-PCS; 2018-09-19)
PROC: 0DH68UZ Insertion of Feeding Device into Stomach, Via Natural or Artificial Opening Endoscopic (ICD-10-PCS; 2018-09-20)
DX: A41.9 Sepsis, unspecified organism (principal); T79.1XXA Fat embolism (traumatic), initial encounter; J96.00 Acute respiratory failure, unspecified whether with hypoxia or hypercapnia; I26.99 Other pulmonary embolism without acute cor pulmonale; J69.0 Pneumonitis due to inhalation of food and vomit; J14 Pneumonia due to Hemophilus influenzae; N17.0 Acute kidney failure with tubular necrosis; R65.21 Severe sepsis with septic shock; E46 Unspecified protein-calorie malnutrition; D62 Acute posthemorrhagic anemia; D68.9 Coagulation defect, unspecified; E87.0 Hyperosmolality and hypernatremia; E87.1 Hypo-osmolality and hyponatremia; G93.40 Encephalopathy, unspecified; I47.1 Supraventricular tachycardia; J98.11 Atelectasis; N13.8 Other obstructive and reflux uropathy; Z99.11 Dependence on respirator [ventilator] status; T82.868A Thrombosis due to vascular prosthetic devices, implants and grafts, initial encounter; Z96.651 Presence of right artificial knee joint; I12.9 Hypertensive chronic kidney disease with stage 1 through stage 4 chronic kidney disease, or unspecified chronic kidney disease; B37.9 Candidiasis, unspecified; M19.90 Unspecified osteoarthritis, unspecified site; W01.0XXA Fall on same level from slipping, tripping and stumbling without subsequent striking against object, initial encounter; E78.5 Hyperlipidemia, unspecified; E86.9 Volume depletion, unspecified; S82.832A Other fracture of upper and lower end of left fibula, initial encounter for closed fracture; G47.00 Insomnia, unspecified; I27.20 Pulmonary hypertension, unspecified; K29.70 Gastritis, unspecified, without bleeding; E87.6 Hypokalemia; S93.02XA Subluxation of left ankle joint, initial encounter; M06.9 Rheumatoid arthritis, unspecified; X58.XXXA Exposure to other specified factors, initial encounter; N18.9 Chronic kidney disease, unspecified; N40.1 Benign prostatic hyperplasia with lower urinary tract symptoms; R13.12 Dysphagia, oropharyngeal phase; T17.990A Other foreign object in respiratory tract, part unspecified in causing asphyxiation, initial encounter; X50.1XXA Overexertion from prolonged static or awkward postures, initial encounter; Y92.009 Unspecified place in unspecified non-institutional (private) residence as the place of occurrence of the external cause; Z93.1 Gastrostomy status; Z68.30 Body mass index [BMI] 30.0-30.9, adult; Z79.1 Long term (current) use of non-steroidal anti-inflammatories (NSAID); Z79.899 Other long term (current) drug therapy; Y83.8 Other surgical procedures as the cause of abnormal reaction of the patient, or of later complication, without mention of misadventure at the time of the procedure; Y92.238 Other place in hospital as the place of occurrence of the external cause
CPT/HCPCS: 36415; 36569; 36600; 71045; 71275; 73560; 73600; 73620; 74018; 76604; 76770; 76937; 80048; 80061; 80202; 82270; 82375; 82550; 82553; 82805; 82962; 83036; 83605; 83735; 83880; 84100; 84132; 84134; 84145; 84439; 84443; 84478; 84484; 85014; 85018; 85027; 85379; 86038; 86160; 86850; 86900; 86920; 87070; 87077; 87106; 87449; 87804; 92610; 93005; 93306; 93308; 93970; 93971; 94002; 94003; 94640; 94660; 94667; 97110; 97112; 97163; 97164; 97166; 97167; 97530; 97535; 99285; A4216; A6261; C1725; C9113; J0153; J0330; J0456; J0692; J1160; J1200; J1642; J1650; J1940; J1956; J2060; J2248; J2250; J2270; J2370; J2405; J2543; J2704; J2765; J3010; J3370; J3480; J3490; J7030; J7040; J7050; J7060; J7070; J7608; J7611; J7620; P9016; Q9967; A4315